=== PATIENT | female | born 1940 | race Caucasian/White ===

== ENCOUNTER → 2016-03-08 | Outpatient (CLI) | payer OTHER, MEDICARE ==
[~2016-03-08] VITALS: Ht 154.9 cm; Wt 64.0 kg
[~2016-03-08] MED LIST: HYZAAR 100-251 EACH PO; METHADONE HCL 110 M1 PO; ORTHO-TABS1 EACH PO; PROLIA60 MG/1 ML SQ; [UNRECOGNIZED DRUG - OTHER] PO
--- NOTE | ~2016-03-08 | HPC ---
[facility] [place] [address] PAIN MANAGEMENT CONSULTATION Name: AUDIE DE LA TORRE Room #: REG CLChildren[facility] Of San DiegoYanet.#: [id number] Admission: 03/08/16 Attend Phys: Alessandro De La Torre DO Discharge: Date of : 41 Report #: [id number] THIS REPORT FOR: //name// CC: Alessandro FLORESAPORN TREEMANEEKAM DATE OF SERVICE: 03/08/2016 REFERRING PHYSICIAN: Alexandru Wheeler MD. CHIEF COMPLAINT: Chronic abdominal pain. HISTORY OF PRESENT ILLNESS: As you know, the patient is a 75-year-old female referred to our service for medication management. Apparently, the patient was started on high dose methadone therapy. This was continued for years due to changes in the patient's medical treatments through physician changes. She was subsequently referred to our clinic. We have kept the patient on the methadone 10 mg dose, but have advised the patient that CDC regulations indicate that no further escalation of medication other than t.i.d. dosing of methadone can be provided, and there is a strong possibility that we may need to reduce this further based on new CDC guidelines. The patient returns today requesting refill on the medication which is at the top dose of the CDC guidelines at 90 morphine equivalents a day. She is denying side effects of medication and wishes to continue the therapy. ALLERGIES: PENICILLIN and AMLODIPINE. CURRENT MEDICATIONS: Methadone 10 mg t.i.d., ProEPA 4 tabs once a day, calcium carbonate 1 tab per day, losartan/hydrochlorothiazide 100/25 once a day. SOCIAL HISTORY: The patient denies tobacco, alcohol, IV or illicit drug use. She is on disability, has been so since the early 90s, accompanied by her today. PHYSICAL EXAMINATION: VITAL SIGNS: Blood pressure 146/85, pulse is 114, respiratory rate 20 and unlabored. The patient is 95% on room air. Height 5 feet 1 inch tall, weight 141.0 pounds, BMI calculated at 26.7. GENERAL: Well-developed, well-nourished, and well-hydrated, exogenously obese 75-year-old female, appearing his stated age, placing current pain score at 7/10. HEENT: Normocephalic and atraumatic. Pupils are equal, round, and reactive to light. Extraocular muscles are intact. EXTREMITIES: Show no clubbing, no cyanosis, no edema. ABDOMEN: Nontender and nondistended. Bowel sounds are present. [facility] [address] [place] [address] PAIN MANAGEMENT CONSULTATION Name: AUDIE DE LA TORRE Room #: REG CL Vishal#: [id number] Admission: 03/08/16 Attend Phys: Alessandro De La Torre DO Discharge: Date of : 41 Report #: [id number] ASSESSMENT: 1. Chronic abdominal pain. 2. Malabsorption syndrome. 3. Dumping syndrome. 4. Osteoporosis. 5. Chronic pancreatitis. PLAN: 1. The patient has returned today in followup visit, where we have had a very long discussion about CDC regulations and guidelines. The patient was receiving her medications through [employer], [employer] for her medications. I advised the patient at this time that she is now going to be restricted to no more than 90 morphine equivalents in a given day. There is a possibility that this will be reduced even further per the CDC guidelines. [employer] has put out information to not only us, but the patient in regards to use of opioids. I agree, typically opioid use is excessive in this patient's case. She appears to be doing fairly well at this time. Obviously, we will remain within the guidelines of the CDC, but I do not feel the changes are necessary at this time, in this patient's prescriptions. We will continue the patient on her prescriptions, as she does find benefit with their use. She is denying any side effects. She has been appropriate with her medication. 2. The patient was provided a prescription of methadone 10 mg dose 1 tab p.o. 3 times a day, #90 releases of today, 4 weeks from today, and 8 weeks from today. 3. The patient is advised that she has been suffering from osteoporosis. She did bring a DEXA scan with her, which does show severe osteoporosis. We would recommend light weightbearing exercises to increase bone density. We will send the patient for physical therapy twice a week for 4 weeks to address these symptoms. She will begin this light exercise program in hopes of improving bone density through weightbearing. 4. We will see the patient back in followup visit in 3 months. At that time, we will adjust to whatever recent CDC guidelines may be present. There is possibility that we may be able to continue her methadone at 10 mg 3 times a day. There is also possibility, that we may need to reduce further, and if this is the case, we will then discuss it at that visit. <ELECTRONICALLY SIGNED> By: Alessandro De La Torre DO 03/13/16 0702 [id number] Alessandro De La Torre DO /nt
[2016-03-08 10:41] VITALS: BP 146/85
== END | disposition home or self-care (01) ==
LOC: PAIN 07:19
DX: K90.9 Intestinal malabsorption, unspecified (principal); K91.1 Postgastric surgery syndromes; M81.0 Age-related osteoporosis without current pathological fracture; K86.1 Other chronic pancreatitis; G89.29 Other chronic pain; K86.81 Exocrine pancreatic insufficiency

== ENCOUNTER → 2016-06-06 | Outpatient (CLI) | payer OTHER, MEDICARE ==
[~2016-06-06] VITALS: Ht 154.9 cm; Wt 58.6 kg
[2016-06-06 10:52] VITALS: BP 148/88
== END ==
LOC: PAIN 07:01
DX: G89.29 Other chronic pain (principal); K90.9 Intestinal malabsorption, unspecified; K91.1 Postgastric surgery syndromes; I10 Essential (primary) hypertension

== ENCOUNTER → 2016-09-06 | Outpatient (CLI) | payer OTHER, MEDICARE ==
[~2016-09-06] VITALS: Ht 157.5 cm; Wt 58.1 kg
[~2016-09-06] MED LIST changes: +LOSARTAN-HCTZ1 EAC1 PO; +VITAMIN D 5050000 I1 PO; +vitamin B-12
[2016-09-06 10:29] VITALS: BP 153/89
== END ==
LOC: PAIN 07:07
DX: R10.9 Unspecified abdominal pain (principal); K90.9 Intestinal malabsorption, unspecified; K91.1 Postgastric surgery syndromes; M81.8 Other osteoporosis without current pathological fracture; G89.29 Other chronic pain; Z79.899 Other long term (current) drug therapy

== ENCOUNTER → 2016-12-05 | Outpatient (CLI) | payer OTHER, MEDICARE ==
[~2016-12-05] VITALS: Ht 157.5 cm; Wt 59.4 kg
--- NOTE | ~2016-12-05 | HPC ---
[facility] [place] [address] PAIN MANAGEMENT CONSULTATION Name: AUDIE DE LA TORRE Room #: REG CL Kimberli.#: [id number] Admission: 12/05/16 Attend Phys: Alessandro De La Torre DO Discharge: Date of : 41 Report #: [id number] THIS REPORT FOR: //name// CC: Alessandro CHEEMAKAM Gabriela Tapia DATE OF SERVICE: 12/05/2016 DATE OF SERVICE: 12/05/2016 CHIEF COMPLAINT: Chronic abdominal pain. HISTORY OF PRESENT ILLNESS: As you know, the patient is a 76-year-old female referred to our service by Dr. Alexandru Wheeelr for assistance in maintaining medication management for methadone therapy. The patient is taking 10 mg 3 times a day methadone, which we reduced when we initially met the patient as she was on excessively high doses and did not need that level of medication. We have subsequently continued the weaning process as much as we possibly can at this time, we have stabilized at the dose of 10 mg 3 times a day with plans to move to 7.5 mg in the very near future. She returns today stating that 10 mg dose is working well at this time, but does understand that the CDC guidelines are going to be changing and opioid therapies will be reducing and we will be adjusting her therapy lower likely at next visit. She returns today for 3 months' worth of medication at current dosing. ALLERGIES: PENICILLIN, AMLODIPINE. CURRENT MEDICATIONS: Methadone 10 mg 3 times a day, Prolia 60 mg subq as directed, ____ 4 times a day, calcium carbonate 1 tab per day, losartan/hydrochlorothiazide 100/25 once a day. SOCIAL HISTORY: The patient denies tobacco, alcohol, IV or illicit drug use. She is on disability. She is present with her . IMAGING: No new imaging available. PHYSICAL EXAMINATION: VITAL SIGNS: Blood pressure 151/90, pulse is 109, respiratory rate 14, unlabored. The patient is 98% on room air, height 5 feet 2 inches tall, weight 131 pounds, BMI calculated 24. GENERAL: Well developed, well nourished, well hydrated, thin, 76-year-old female appearing her stated age, placing current pain score 6/10. HEENT: Normocephalic, atraumatic. Pupils equal, round, reactive to light. Speech is fluent. [facility] [address] [place] [address] PAIN MANAGEMENT CONSULTATION Name: AUDIE DE LA TORRE Room #: REG CLMonse Rodgers#: [id number] Admission: 12/05/16 Attend Phys: Alessandro De La Torre DO Discharge: Date of : 41 Report #: [id number] ABDOMEN: Nontender, nondistended. Bowel sounds present. No guarding, no rebound tenderness. EXTREMITIES: Show no clubbing, no cyanosis, no edema. ASSESSMENT: 1. Chronic abdominal pain. 2. Malabsorption syndrome. 3. Dumping syndrome. 4. Progressively worsening osteoporosis. 5. Chronic intractable pain. PLAN: 1. The patient returns today in followup visit indicating no side effects with the current opioid therapy. She and I discussed the recent CDC changes and the fact that we will ultimately have to be reducing her opioids further. At this time, she is at the top dose possible from CDC standpoint at 90 morphine equivalents a day, approximately at 10 mg 3 times a day dose of methadone. I have discussed with the patient that the recent literature would indicate we will be dropping her dose by 50% within the next couple of months given the recent CDC literature indicating a desire to drop to 50 morphine equivalents per day. We will need to make this adjustment if the CDC does recommend this. At this point, we do not have a specific etiology for the patient's symptoms and I believe that keeping her at the lowest opioid dose is the most appropriate option. 2. The patient was provided a prescription of methadone 10 mg dose 1 tab 3 times a day. She was given #90 tablets, releases of today, 4 weeks from today, 8 weeks from today, 3 months' worth of medication. I did advise the patient that these medications will likely have to be reduced at our next visit. We will discuss this at followup. 3. We will see the patient back in followup visit in 3 months. At that time, discuss new CDC guidelines if these are available and adjust accordingly. <ELECTRONICALLY SIGNED> By: Alessandro De La Torre DO 12/13/1606 9 Alessandro De La Torre DO /nt
[2016-12-05 11:02] VITALS: BP 151/90
== END | disposition home or self-care (01) ==
LOC: PAIN 07:14
DX: Z76.0 Encounter for issue of repeat prescription (principal); R10.9 Unspecified abdominal pain; G89.29 Other chronic pain; K90.9 Intestinal malabsorption, unspecified; K91.1 Postgastric surgery syndromes; M81.0 Age-related osteoporosis without current pathological fracture; Z88.0 Allergy status to penicillin; Z88.8 Allergy status to other drugs, medicaments and biological substances; Z79.899 Other long term (current) drug therapy; Z79.891 Long term (current) use of opiate analgesic

== ENCOUNTER → 2017-03-06 | Outpatient (CLI) | payer OTHER, MEDICARE ==
[~2017-03-06] VITALS: Ht 157.5 cm; Wt 60.9 kg
[~2017-03-06] MED LIST changes: +COLESTIPOL HCL1 G1 PO; +LIDOCAINE1 EACH TOP
--- NOTE | ~2017-03-06 | HPC ---
[facility] [place] [address] PAIN MANAGEMENT CONSULTATION Name: AUDIE DE LA TORRE Room #: [facility] CLKess[facility] For Rehabilitation.#: [id number] Admission: 03/06/17 Attend Phys: Alessandro De La Torre DO Discharge: Date of : 41 Report #: [id number] THIS REPORT FOR: //name// CC: Alessandro FLORESAPORN TREEMANEEKAM DATE OF SERVICE: 03/06/2017 REFERRING PHYSICIAN: Alexandru Wheeler MD CHIEF COMPLAINT: Chronic abdominal pain. HISTORY OF PRESENT ILLNESS: As you know, the patient is a 76-year-old female, referred to our service by Dr. Alexandru Wheeler for assistance with maintaining methadone therapy. The patient is currently taking 10 mg of methadone 3 times a day for which she describes the pain is well controlled. Despite the fact that the patient reports well controlled pain, she indicates pain level today of 7/10, states pain is aching and cramping in sensation, exacerbated with drinking something cold and eating something spicy, improves with medications and heat compresses. She returns today in followup visit stating she has been doing very well, requesting refill on medications at this juncture. ALLERGIES: PENICILLIN and AMLODIPINE. CURRENT MEDICATIONS: Methadone 10 mg 3 times a day, vitamin B12 injections once a month, vitamin D 50,000 units per week, Prolia 60 mg subq, calcium carbonate 1 tab per day, and losartan/hydrochlorothiazide 100/25 once a day. SOCIAL HISTORY: The patient denies tobacco, alcohol, IV or illicit drug use. She is on disability. She is present with her who is in the room today. IMAGING: No new imaging available. PHYSICAL EXAMINATION: VITAL SIGNS: Blood pressure 123/67, pulse 95, respiratory rate 14 and unlabored, the patient is 100% on room air, height 5 feet 2 inches tall, weight 134.2 pounds, and BMI calculated 24.5. GENERAL: Well-developed, well-nourished, well-hydrated 76-year-old female, appears her stated age, she is placing current pain score at 7/10. HEENT: Normocephalic, atraumatic. Pupils are equal, round, and reactive to light. Extraocular muscles are intact. NEUROLOGIC: Speech fluent. The patient deemed a good historian. LUNGS: Clear. No wheezing, rhonchi, or rales. CARDIOVASCULAR: Regular. No appreciable gallop or rub. ABDOMEN: Soft, nontender, bowel sounds are present. No guarding, no rebound. [address] [address] PAIN MANAGEMENT CONSULTATION Name: AUDIE DE LA TORRE Room #: [facility].#: [id number] Admission: 03/06/17 Attend Phys: Alessandro De La Torre DO Discharge: Date of : 41 Report #: [id number] EXTREMITIES: Show no clubbing, no cyanosis, and no edema. ASSESSMENT: 1. Chronic abdominal pain. 2. Malabsorption syndrome. 3. Dumping syndrome. 4. Osteoporosis. 5. Chronic intractable pain. PLAN: 1. The patient has returned today in followup visit for medication management. The patient and I discussed the efficacy of the medication. Indicates medications are working well despite the elevated pain level of 7/10 today. We have discussed with the patient our concern about this elevated pain level and the fact that she reports this with pain improvement. This does not tend to equate as the patient states good pain control with medication, but then provides a pain score of 7/10. The patient states that she has been out of her medication over the past 2 days and thus her pain has intensified. Typically, her pain is around a level of 2-3/10. She has requested refill on medication at this time. 2. We have provided the patient with methadone 10 mg dose 1 tab p.o. t.i.d., #90, release dates of today, 4 weeks from today, 8 weeks from today, 3 months' worth of medication. 3. The patient was submitted to a buccal drug screen today, we will have the patient undergo the procedure today and review the results in approximately a week and week and half. We provide these randomized drug evaluation to determine the appropriate use of medications, this is part of our drug monitoring system. If no aberrancy is noted, we will see the patient back in followup visit in 3 months; if any concerning entries are within the drug screen, we will contact the patient. <ELECTRONICALLY SIGNED> By: Alessandro De La Torre DO 03/07/17 0739 1221 1244 Alessandro De La Torre DO /nt
[2017-03-06 10:22] VITALS: BP 123/67
== END ==
LOC: PAIN 07:04
DX: K90.9 Intestinal malabsorption, unspecified (principal); K91.1 Postgastric surgery syndromes; M81.0 Age-related osteoporosis without current pathological fracture

== ENCOUNTER → 2017-06-06 | Outpatient (CLI) | payer OTHER, MEDICARE ==
[~2017-06-06] VITALS: Ht 157.5 cm; Wt 59.2 kg
[~2017-06-06] MED LIST changes: -COLESTIPOL HCL1 G1 PO; -LIDOCAINE1 EACH TOP
--- NOTE | ~2017-06-06 | HPC ---
[facility] [address] [address] [address] PAIN MANAGEMENT CONSULTATION Name: AUDIE DE LA TORRE Room #: REG CLParnassus CampusYanet.#: [id number] Admission: 06/06/17 Attend Phys: Alessandro De La Torre DO Discharge: Date of : 41 Report #: [id number] THIS REPORT FOR: //name// CC: Alessandro BEMANEEKAM Gabriela Herronkarn DATE OF SERVICE: 06/06/2017 REFERRING PHYSICIAN: Alexandru Wheeler MD CHIEF COMPLAINT: Chronic abdominal pain. HISTORY OF PRESENT ILLNESS: As you know, the patient is a 77-year-old female who returns today in followup visit for continuation of methadone therapy. She is taking 10 mg 3 times a day for chronic abdominal pain secondary to issues of malabsorption and dumping syndrome. The patient was referred to our clinic by her primary care physician, Dr. Alexandru Wheeler for the continuation of this therapy. She has been doing well with medication, she is denying any side effects. Recent urine drug screen shows positive for methadone and no other illicit substances. She has been appropriate with her medication. She returns for refills for the next 3 months. She is denying any side effects and feels medications are working beneficially up to 70% improvement. ALLERGIES: PENICILLIN and AMLODIPINE. CURRENT MEDICATIONS: Methadone 10 mg 3 times a day, Prolia 60 mg subq as directed, vitamin B12 monthly, vitamin D 50,000 units once a week, calcium carbonate 1 tab per day, and losartan/hydrochlorothiazide 100/25 once a day. SOCIAL HISTORY: The patient denies tobacco, alcohol, IV or illicit drug use. She is retired. She is accompanied by her present in room today. IMAGING: No new imaging available. PQRS: The patient has known osteoarthritis and osteoporosis. No rheumatoid arthritis. Her pain intensity today is level of 6-7/10. She is a fall risk, but has not had a fall in the last 3 months. She does use a roller walker for ambulation. She is not on blood thinner. She is treated for hypertension. She has been on opioids greater than 6 weeks and is under contract with [facility] for these medications. She has a low risk of opioid abuse. Her pain impact score functional assessment tool 35/70 indicating moderate interference. PHYSICAL EXAMINATION: VITAL SIGNS: Blood pressure 137/72, pulse 103, respiratory rate 14 and [facility] [address] [place] [address] PAIN MANAGEMENT CONSULTATION Name: BRITTAUDIE Room #: REG CL M.R.#: [id number] Admission: 06/06/17 Attend Phys: Alessandro De La Torre DO Discharge: Date of : 41 Report #: [id number] unlabored, the patient is 97% on room air, height 5 feet 2 inches tall, weight 130.6 pounds, and BMI calculated 23.9. GENERAL: Well-developed, well-nourished, well-hydrated 77-year-old female, appearing her stated age, placing current pain score around 6-7/10. HEENT: Normocephalic, atraumatic. Pupils are equal, round, and reactive to light. NEUROLOGIC: Speech is fluent. The patient deemed a good historian. LUNGS: Clear, no wheeze, rhonchi, or rales. CARDIOVASCULAR: Regular. No appreciable gallop or rub. ABDOMEN: Soft, nontender, nondistended, no guarding, no rebound tenderness. EXTREMITIES: Show no clubbing, no cyanosis. ASSESSMENT: 1. Chronic abdominal pain. 2. Malabsorption syndrome. 3. Dumping syndrome. 4. Osteoporosis. 5. Chronic intractable pain. PLAN: 1. The patient returns today in followup visit for medication management. She feels the methadone at 10 mg 3 times a day is working beneficially for pain control, in fact gives us a 70% improvement in overall symptoms. Interestingly, the patient is providing a pain score today 6-7/10, which does not correlate with a 70% improvement. I have questioned the patient about this today, she indicates that her pain may be less, but today is more intense. She has requested refill on medication, denying side effects of somnolence, decreased mental acuity, disorientation, confusion and mental slowing. She has requested refills for the next 3 months. 2. The patient was provided a prescription of methadone 10 mg dose 1 tab p.o. t.i.d., I have given the patient #90 tablets, release dates of today, 4 weeks from today, 8 weeks from today. The patient was advised to take the medication as directed, not to take the medication prophylactically. 3. We will see the patient back in followup visit in 3 months for medication management. <ELECTRONICALLY SIGNED> By: Alessandro De La Torre DO 06/20/17 1207 [id number] 1049 Alessandro De La Torre DO /nt
[2017-06-06 10:55] VITALS: BP 137/72
== END ==
LOC: PAIN 06:58
DX: G89.4 Chronic pain syndrome (principal); R10.9 Unspecified abdominal pain; M19.90 Unspecified osteoarthritis, unspecified site; K91.1 Postgastric surgery syndromes; K90.9 Intestinal malabsorption, unspecified

== ENCOUNTER → 2017-09-04 | Outpatient (CLI) | payer OTHER, MEDICARE ==
[~2017-09-04] VITALS: Ht 157.5 cm; Wt 59.8 kg
[~2017-09-04] MED LIST changes: +COLESTIPOL HCL1 G1 PO; +LIDOCAINE1 EACH TOP
--- NOTE | ~2017-09-04 | HPC ---
[facility] [address] [place] [address] PAIN MANAGEMENT CONSULTATION Name: AUDIE DE LA TORRE Room #: REG CL M.R.#: [id number] Admission: 09/04/17 Attend Phys: Alessandro De La Torre DO Discharge: Date of : 41 Report #: [id number] THIS REPORT FOR: //name// CC: Alessandro Wheeler MD Physician staff [facility] DATE OF SERVICE: 09/04/2017 REFERRING PHYSICIAN: Alexandru Wheeler MD. CHIEF COMPLAINT: Chronic abdominal pain. HISTORY OF PRESENT ILLNESS: As you know, the patient is a 77-year-old female who returns today in followup visit for continuation of methadone therapy. She is taking 10 mg 3 times a day for chronic abdominal pain secondary to issues of malabsorption and dumping syndrome. The patient was referred to our clinic by her primary care physician, Dr. Alexandru Wheeler, for continuation of this therapy. She returns today in followup visit where we have to discuss ongoing medication therapy. She is at an excessively high dose of opioids given the conversion factor provided by the [facility] of 1 mg methadone equalling 4 mg morphine equivalents, total of morphine minimum is 120. If utilizing the higher dosing equivalency of 8:1, the patient is then at 240 morphine equivalents a day. She returns for medication management, stating 70% improvement in overall pain. ALLERGIES: PENICILLIN, AMLODIPINE. CURRENT MEDICATIONS: Methadone 10 mg 3 times a day, Prolia 60 mg subQ as directed, vitamin B12 once a month injection, vitamin D 50,000 units once a week, calcium carbonate 1 tab per day, losartan/hydrochlorothiazide 100/25 once a day. SOCIAL HISTORY: The patient denies tobacco, alcohol, IV or illicit drug use. She is retired, retired years ago. She is accompanied by her , present in room today. IMAGING: No new imaging available. PQRS: The patient has osteoarthritis of the low back, bilateral knees and hips, also suffers from osteoporosis. No rheumatoid arthritis. She indicates pain intensity is 7/10. She is a fall risk, but has not had a fall in last 3 months. She is on a blood thinner. She is treated for hypertension. She has been on chronic opioids for about 30 years. She is at a higher level of risk assessment for opioid abuse. Functional assessment indicates the pain impact score of 38/70, moderate interference. [address] [address] PAIN MANAGEMENT CONSULTATION Name: AUDIE DE LA TORRE Room #: REG OLGA Rodgers#: [id number] Admission: 09/04/17 Attend Phys: Alessandro De La Torre DO Discharge: Date of : 41 Report #: [id number] PHYSICAL EXAMINATION: VITAL SIGNS: Blood pressure 124/75, pulse 93, respiratory rate 16, unlabored. The patient is 100% on room air. Height 5 feet 2 inches tall, weight 131.8 pounds, BMI calculated 24.1. GENERAL: Well-developed, well-nourished, well-hydrated 77-year-old female, appearing her stated age. She is placing current pain score 7/10. HEENT: Normocephalic, atraumatic. Pupils are equal, round, reactive to light. EXTREMITIES: Show no clubbing, no cyanosis, no edema. MUSCULOSKELETAL: Lower extremity strength is symmetrical 5/5, intact to light touch from L1 through S2 dermatomes. ASSESSMENT: 1. Chronic abdominal pain. 2. Malabsorption syndrome. 3. Dumping syndrome. 4. Osteoporosis. 5. Chronic intractable pain. PLAN: 1. The patient has returned today in followup visit where we have discussed at length the methadone therapy. If utilizing the lower calculation of the CDC, the patient is 120 morphine equivalents a day. After utilizing the higher calculation, then the patient is 240 morphine equivalents a day, well over the CDC recommended guidelines of 90 morphine equivalents total. We have discussed with the patient that the patient's over 90 morphine equivalents a day will need to be seen on a monthly basis due to the high level of opioids and the risk involved with those high level of opioids in older individuals. If the patient is willing to reduce her medication to a lower dose, there is a possibility that we can see the patient more infrequently. If she is able to reduce her dose to 7.5 mg 3 times a day, this will allow the patient to be seen on an every other month basis. If she drops the medication further, she will be seen on an every 3-month basis. These adjustments have been made to address the ongoing opioid issue, but also to have better and tighter control on individuals who are on more dangerous dosing. The patient has chosen to continue with the 10 mg t.i.d. dosing at this time and consider options before she makes this adjustment. 2. The patient was provided prescription of methadone 10 mg dose 1 tab p.o. t.i.d. I have given the patient #90 tablets, with release of today and 4 weeks from today, 2 months' worth of medication. We have given the patient 2 months' worth of treatment to be able to determine if they wish to reduce her dose or if they wish to continue the 10 mg dosing regimen. If she chooses the 10 mg dosing regimen once a month, will be necessary for medication management. If she reduces her dose to 7.5 mg 3 times a day, will be able to adjust her medications every other month. Prescriptions were provided to the patient today. [facility] [address] [place] [address] PAIN MANAGEMENT CONSULTATION Name: AUDIE DE LA TORRE Room #: REG OLGA Rodgers#: [id number] Admission: 09/04/17 Attend Phys: Alessandro De La Torre DO Discharge: Date of : 41 Report #: [id number] 3. We will see the patient back in followup visit 2 months from today. We will make adjustments in medications based on above. By: [id number] Alessandro De La Torre DO /nt
[2017-09-04 10:04] VITALS: BP 124/75
== END ==
LOC: PAIN 06:38
DX: M85.80 Other specified disorders of bone density and structure, unspecified site (principal); G89.4 Chronic pain syndrome; R10.9 Unspecified abdominal pain; K90.9 Intestinal malabsorption, unspecified; K91.1 Postgastric surgery syndromes; Z79.899 Other long term (current) drug therapy

== ENCOUNTER → 2017-12-25 | Outpatient (CLI) | payer OTHER, MEDICARE ==
[~2017-12-25] VITALS: Ht 157.5 cm; Wt 58.8 kg
--- NOTE | ~2017-12-25 | HPC ---
[facility] [address] [place] [address] PAIN MANAGEMENT CONSULTATION Name: AUDIE DE LA TORRE Room #: REG CL Vishal#: [id number] Admission: 12/25/17 Attend Phys: Coco Potts Discharge: Date of : 42 Report #: [id number] THIS REPORT FOR: //name// CC: Coco JONES MD DATE OF SERVICE: 12/25/2017 CHIEF COMPLAINT: Chronic abdominal pain, here for medication management. HISTORY OF PRESENT ILLNESS: As you know, this is a very pleasant 77-year-old female, who returns today for a followup visit for her continuation of methadone therapy. She takes 10 mg 3 times a day for her chronic abdominal pain secondary to issues with malabsorption and dumping syndrome. This patient is usually seen by Dr. Alessandro De La Torre, this is her first visit with me today. She returns for her followup where we are discussing her medication therapy. She is on high dose opioids given the conversion factor for the methadone. Therefore, she is seeing us every 2 months for her medication, but she states that her pain score is an average of 5/10, so the methadone significantly helps her pain. She states though today she is having not a good day and rating it at 7. She complains of cramping and aching, but states that the heat and medication help her pain. ALLERGIES: PENICILLIN AND AMLODIPINE. MEDICATIONS: Methadone 10 mg 3 times a day, lidocaine patch, colestipol, vitamin B12, vitamin D, Prolia, calcium and Hyzaar 100/25. PQRS: 1. History of osteoarthritis in her knees and her hands and back. Denies history of rheumatoid arthritis. 2. Height 5 feet 2 inches, weight 129, BMI is 23.7. 3. Vital signs: Blood pressure 139/73, pulse is 86, respirations 16, oxygen sat is 96. 4. 5-7/10 is the pain score. 5. Fall risk: Denies dizziness. Denies needing help walking or standing and has not fallen in the last 3 months. 6. No blood thinners. 7. Does have a history of hypertension. 8. Opioid therapy is greater than 6 weeks, therefore, opioid signed contract is on the chart. 9. Her risk assessment tool is low. 10. Her functional assessment is 38/70. 11. No recreational drug use. The patient has never smoked and does not use [facility] [address] [place] [address] PAIN MANAGEMENT CONSULTATION Name: BRITTAUDIE CHUY Room #: REG OLGA Rodgers#: [id number] Admission: 12/25/17 Attend Phys: Coco Potts Discharge: Date of : 41 Report #: [id number] alcohol. [facility] PDMP has been checked and no aberrant behavior noted by this patient for her opioid use. PHYSICAL EXAMINATION: VITAL SIGNS: Blood pressure is 139/73, pulse 86, respirations 16, oxygen level is 96. GENERAL: Well-developed, well-nourished, well-hydrated, 77-year-old, appears her stated age, placing her current pain score from 5-7/10. HEENT: Normocephalic, atraumatic. Pupils are equal, round and reactive to light. EXTREMITIES: No clubbing, no cyanosis, no edema. MUSCULOSKELETAL: Lower extremity strength is 4/5, intact to light touch L1 through S2 dermatomes. Using a walker today. Does have tenderness over her right hip area. ASSESSMENT: 1. Chronic abdominal pain. 2. Malabsorption syndrome. 3. Dumping syndrome. 4. Osteoporosis. 5. Chronic intractable pain. We reviewed the fact that opiate medications are being used to provide analgesia adequate to support activities of daily living, not attempting to achieve a specific pain score on the 0-10 Visual Analog Scale. The current opiate medications are providing sufficient analgesia to allow the patient to participate in activities of daily living. The patient is not exhibiting any aberrant behavior suggestive of drug diversion. The patient is not having any adverse reactions to medications. The patient is not suffering from daytime somnolence or mental acuity changes. The patient is managing opiate-induced constipation with appropriate wsvo-hhi-ozyikpm agents and dietary considerations. The patient was counseled on concern for caution with operating a motor vehicle while using opiate medications. A physical exam was performed and the patient's functional status was evaluated. All patients with back pain were advised against the bed rest greater than 4 days and were advised to return to normal activities. Pain score assessment was noted and the treatment plan was reviewed with the patient. All current medications, both prescribed and OTC were reviewed and reconciled on the electronic medical record. Tobacco screening was accomplished and smoking cessation was advised when indicated. BMI was noted and diet/exercise modification was recommended for all patients following outside normal parameters. [address] [address] PAIN MANAGEMENT CONSULTATION Name: AUDIE DE LA TORRE Room #: REG OLGA Rodgers#: [id number] Admission: 12/25/17 Attend Phys: Coco PATSY Potts Discharge: Date of : 41 Report #: [id number] I reviewed with the patient today their responsibilities to safeguard prescription medications, reviewed their responsibility to utilize medications only as prescribed by the physician. They are to seek and receive pain medications only from 1 physician group ( [facility]). They are to use 1 pharmacy and keep the clinic informed if they change pharmacies. Their responsibilities include making followup visits in a timely fashion and to avoid abrupt discontinuation of medication usage. Their responsibilities further include bringing their medications (bottles from the pharmacy with residual pills) to the visit for possible confirmation of pill counts and the patient understands it is their responsibility to submit to random drug screens to ensure both that the medications prescribed are present, and that no other controlled substances are present. All prescriptions provided today were generated electronically. PLAN: 1. The patient has returned today for followup of her medication management of methadone. According to the CDC guidelines, the patient is on a high level of MME, the patient is at 240 MME today, well over the standard of 90 MME. The patient has been seen on a monthly or every 2-month basis due to this high level risk the patient is tolerating and doing well and functioning on this medication with no aberrant abuse from it or no daytime somnolence and denies constipation. 2. The patient was given methadone 10 mg 1 tablet 3 times a day, script for 90 to be released today and again in 4 weeks, this is 2 months' worth of medicine. At that time, she will make appointment either with Dr. Alessandro De La Torre or myself. We may at that time discuss reducing her medicine if we are able. The patient was seen in collaboration with Dr. Alessandro De La Torre. <ELECTRONICALLY SIGNED> By: Coco Potts 12/26/17 0712 [id number] Coco Potts /eduardo
[2017-12-25 14:07] VITALS: BP 139/73
== END ==
LOC: PAIN 06:19
DX: R10.9 Unspecified abdominal pain (principal); G89.4 Chronic pain syndrome; M81.0 Age-related osteoporosis without current pathological fracture; K90.9 Intestinal malabsorption, unspecified; K91.1 Postgastric surgery syndromes; Z79.899 Other long term (current) drug therapy

== ENCOUNTER → 2018-02-27 | Outpatient (CLI) | payer OTHER, MEDICARE ==
[~2018-02-27] VITALS: Ht 157.5 cm; Wt 58.5 kg
--- NOTE | ~2018-02-27 | HPC ---
[facility] [address] [place] [address] PAIN MANAGEMENT CONSULTATION Name: AUDIE DE LA TORRE Room #: REG CL MDavis.#: [id number] Admission: 02/27/18 Attend Phys: Coco Potts Discharge: Date of : 41 Report #: [id number] THIS REPORT FOR: //name// CC: Coco Potts Physician staff JESICA VILLATORO DATE OF SERVICE: 02/27/2018 CHIEF COMPLAINT: Chronic abdominal pain. HISTORY OF PRESENT ILLNESS: This is a very pleasant 77-year-old female, who returns to the pain clinic today for a refill of her methadone. The patient takes 10 mg tablets 3 times a day for her chronic abdominal pain secondary to malabsorption and dumping syndrome. She tells me that her pain score is a 7 today, which is her normal pain score. She tells me that it is worse with eating, drinking cold items and the weather. The medication does help it or heating pad or distraction. She denies any constipation or daytime sleepiness. She tells me that she does safeguard her medications and just would like a refill of her current methadone today. ALLERGIES: PENICILLIN AND AMLODIPINE. CURRENT LIST OF MEDICATIONS: Methadone 10 mg 3 times a day, lidocaine patch as needed, colestipol tablets 3 times a day, vitamin B12 monthly injections, vitamin D 5000 units every week, Prolia 60 mg subcutaneous, daily, calcium tablets daily, losartan/hydrochlorothiazide 100/25 daily. PQRS: She has osteoporosis and is treated for that. History of osteoarthritis in her hands and knees. She denies rheumatoid arthritis. Height is 5 feet 2 inches, weight is 129, BMI is 23. Vital signs: Blood pressure 122/67, pulse is 81, respirations 18, oxygen sat is 94. Pain score is 7/10. Fall risk, she denies dizziness. Does not need help walking or standing, has not fallen in the last 3 months. Does use a walker. The patient is not on any blood thinners, does take hypertension medications. Opioid therapy is greater than 6 weeks, therefore, an opioid signed contract is on the chart. Her opioid risk assessment is low and her functional assessment is 38/70. The patient does not use recreational drug use. She does not smoke and does not drink alcohol. Prescription monitoring system, we checked, she is filling appropriately her medications from Dr. Alessandro De La Torre. There is a recent drug screen on the chart that is appropriate. PHYSICAL EXAMINATION: GENERAL: This is a well-developed, well-nourished, well-hydrated 77-year-old who appears her stated age, placing her current pain score at 7/10. HEENT: Normocephalic, atraumatic. Pupils are equal, [place] [address] PAIN MANAGEMENT CONSULTATION Name: BRITTAUDIE CHUY Room #: REG CLI Vishal#: [id number] Admission: 02/27/18 Attend Phys: Coco Potts Discharge: Date of : 41 Report #: [id number] light. EXTREMITIES: No clubbing, no cyanosis, no edema present. MUSCULOSKELETAL: Lower extremity strength judged to be 4/5. Using a walker today. Does have tenderness over her right hip area. Gait is mildly antalgic. ASSESSMENT: 1. Chronic abdominal pain. 2. Malabsorption syndrome. 3. Dumping syndrome. 4. Osteoporosis. 5. Chronic intractable pain. We reviewed the fact that opiate medications are being used to provide analgesia adequate to support activities of daily living, not attempting to achieve a specific pain score on the 0-10 Visual Analog Scale. The current opiate medications are providing sufficient analgesia to allow the patient to participate in activities of daily living. The patient is not exhibiting any aberrant behavior suggestive of drug diversion. The patient is not having any adverse reactions to medications. The patient is not suffering from daytime somnolence or mental acuity changes. The patient is managing opiate-induced constipation with appropriate nwjd-eos-vjptcbc agents and dietary considerations. The patient was counseled on concern for caution with operating a motor vehicle while using opiate medications. A physical exam was performed and the patient's functional status was evaluated. All patients with back pain were advised against the bed rest greater than 4 days and were advised to return to normal activities. Pain score assessment was noted and the treatment plan was reviewed with the patient. All current medications, both prescribed and OTC were reviewed and reconciled on the electronic medical record. Tobacco screening was accomplished and smoking cessation was advised when indicated. BMI was noted and diet/exercise modification was recommended for all patients following outside normal parameters. I reviewed with the patient today their responsibilities to safeguard prescription medications, reviewed their responsibility to utilize medications only as prescribed by the physician. They are to seek and receive pain medications only from 1 physician group ( [facility]). They are to use 1 pharmacy and keep the clinic informed if they change pharmacies. Their responsibilities include making followup visits in a timely fashion and to avoid abrupt discontinuation of medication usage. Their responsibilities further include bringing their medications (bottles from the pharmacy with residual pills) to the visit for possible confirmation of pill counts and the patient understands it is their responsibility to submit to random drug screens to ensure both that the medications prescribed are present, and that no other controlled substances are present. All prescriptions provided today were [address] [address] PAIN MANAGEMENT CONSULTATION Name: AUDIE DE LA TORRE Room #: REG CLI [facility].#: [id number] Admission: 02/27/18 Attend Phys: Coco Potts Discharge: Date of : 41 Report #: [id number] generated electronically. PLAN: 1. The patient returns to the pain clinic today for followup for her medication management of methadone. The patient is seen every 2 months due to her high level of opioid placement on the CDC guidelines. The patient understands this. She is tolerating her medicines and being able to function well with this medication. 2. Script given for methadone 10 mg 1 tablet 3 times a day, #90 to be released today and 4-week time. 3. The patient will follow up in [address] Alessandro De La Torre at that appointment. Care given today in collaboration under Dr. Alessandro De La Torre. <ELECTRONICALLY SIGNED> By: Coco Potts 02/28/18 0839 [id number] Coco Potts /eduardo
[2018-02-27 10:36] VITALS: BP 122/67
== END ==
LOC: PAIN 10:14
DX: M81.0 Age-related osteoporosis without current pathological fracture (principal); G89.4 Chronic pain syndrome; K91.1 Postgastric surgery syndromes; K90.9 Intestinal malabsorption, unspecified; R10.9 Unspecified abdominal pain

== ENCOUNTER → 2018-04-30 | Outpatient (CLI) | payer OTHER, MEDICARE ==
[~2018-04-30] VITALS: Ht 142.2 cm; Wt 59.0 kg
[2018-04-30 12:20] VITALS: BP 134/80
--- NOTE | 2018-04-30 12:22 | NUR ---
Pain Clinic Assessment: 1. History of Osteoarthritis: OSTEOPOROSIS hands knees History of Rheumatoid Arthritis: none 2. Height: 5 ft. 2 in. 157.5 cm. Weight: 130.0 lb. oz. 58.968 kg. Patient's BMI: 23.8 3. Vital Signs: BP: 134/80 Pulse: 95 Resp: 15 Temp: 02 Sat: 95 ECG Mon: 4. Pain Intensity: 7 5. Fall Risk: Dizziness: N Needs help standing or walking: N Fallen in the last 3 months: N Fall risk comments: 6. Patient on Blood Thinner: None 7. History of Hypertension: Y 8. Opioid Therapy greater than 6 weeks: Y Opiate Contract Signed: 09/14/15 9. Risk Assessment Tool Provided: Opioid Risk Tool 10. Functional Assessment Tool: LOW 11. Recreational Drug Use: Never Drug Type: Tobacco Use: Never Smoker Tobacco Type: Amount or Packs/day: How Many Years: Alcohol Use: No Frequency: Quant:
--- NOTE | 2018-05-01 07:52 | HPC ---
[facility] [address] [address] PAIN MANAGEMENT CONSULTATION Name: AUDIE DE LA TORRE Room #: REG [facility] Kimberli.#: [id number] Admission: 04/30/18 ������������������ Attend Phys: Coco Potts Discharge: ������������������ Date of : 41 Report #: [id number] THIS REPORT FOR: //name// CC: Coco Potts Physician staff JESICA VILLATORO DATE OF SERVICE: 04/30/2018 CHIEF COMPLAINT: Chronic abdominal pain. HISTORY OF PRESENT ILLNESS: This is a very pleasant 78-year-old female who returns to the pain clinic today for refill of her medications. She tells me that she is doing quite well on her current medication regimen. She is rating her pain at a 7 today, which is her average pain score. She tells me if she drinks something cold, the cold weather makes her pain worse. Medications and heat or distraction are very helpful. She denies any problems with constipation. She says, in fact, she has more diarrhea than constipation. She recently had a bone scan and continues on her Prolia. She said that she did find out that she is 4 feet 8 inches, which she was surprised that she had decreased so much in her height. The patient tells me otherwise overall, she is doing well and would like a refill of her medications. ALLERGIES: PENICILLIN AND AMLODIPINE. MEDICATIONS: Current list of medications are methadone 10 mg t.i.d., lidocaine patch as needed, colestipol 3 times a day, vitamin B12 injections monthly, vitamin D 5000 units weekly, Prolia subcutaneously, ProEPA 4 tablets daily, Ortho-Tabs 4 tablets daily, Hyzaar 100/25 one tablet daily. PQRS: She has osteoporosis and is being treated for that. She has a history of osteoarthritis in her hands and knees. She denies any rheumatoid arthritis. She is 4 feet 8 inches, weight is 130. BMI is 29.2. Vital signs, blood pressure 134/80, pulse is 95, respirations 14, oxygen sat 95%. Pain score 7/10. Fall risk, denies dizziness, does not need help walking or standing, has not fallen in the last 3 months. She is not on a blood thinner. She does have a history of hypertension. She has been on opioids greater than 6 weeks; therefore, an opioid signed contract is on the chart. Her risk assessment tool is low. Her functional assessment is 38/70. The patient does not use recreational drugs. She is not a smoker and does not drink alcohol. We did check the prescription monitoring system. The patient is filling appropriately with her medications. She is here on a timely fashion, due for her medications today. We will recheck a buccal drug swab on her today as it has been a year [place] [address] PAIN MANAGEMENT CONSULTATION Name: AUDIE DE LA TORRE CHUY Room #: REG CLMonse Rodgers#: [id number] Admission: 04/30/18 ������������������ Attend Phys: Coco Potts Discharge: ������������������ Date of : 41 Report #: [id number] PHYSICAL EXAMINATION: GENERAL: This is a well-developed, well-nourished, well-hydrated 78-year-old female who appears her stated age, placing her current pain score at 7/10. HEENT: Normocephalic, atraumatic. Pupils equal, round and reactive to light. EXTREMITIES: No clubbing, no cyanosis, no edema present. MUSCULOSKELETAL: Lower extremity strength judged to be 4/5 in all major muscle groups. She does use a walker. She has upper extremity strength judged to be 5/5 in all major muscle groups. Her gait is mildly antalgic. ASSESSMENT: 1. Chronic abdominal pain. 2. Malabsorption syndrome. 3. Dumping syndrome. 4. Osteoporosis. 5. Chronic intractable pain. We reviewed the fact that opiate medications are being used to provide analgesia adequate to support activities of daily living, not attempting to achieve a specific pain score on the 0-10 Visual Analog Scale. The current opiate medications are providing sufficient analgesia to allow the patient to participate in activities of daily living. The patient is not exhibiting any aberrant behavior suggestive of drug diversion. The patient is not having any adverse reactions to medications. The patient is not suffering from daytime somnolence or mental acuity changes. The patient is managing opiate-induced constipation with appropriate wrbh-fkm-mprjbyo agents and dietary considerations. The patient was counseled on concern for caution with operating a motor vehicle while using opiate medications. A physical exam was performed and the patient's functional status was evaluated. All patients with back pain were advised against the bed rest greater than 4 days and were advised to return to normal activities. Pain score assessment was noted and the treatment plan was reviewed with the patient. All current medications, both prescribed and OTC were reviewed and reconciled on the electronic medical record. Tobacco screening was accomplished and smoking cessation was advised when indicated. BMI was noted and diet/exercise modification was recommended for all patients following outside normal parameters. I reviewed with the patient today their responsibilities to safeguard prescription medications, reviewed their responsibility to utilize medications only as prescribed by the physician. They are to seek and receive pain medications only from 1 physician group ([facility]). They are to use 1 pharmacy and keep the clinic informed if they change pharmacies. Their responsibilities include making followup visits in a timely fashion and to avoid abrupt discontinuation of medication usage. Their responsibilities further include bringing their medications (bottles from the pharmacy with residual [facility] [address] [place] [address] PAIN MANAGEMENT CONSULTATION Name: AUDIE DE LA TORRE [id number] Admission: 04/30/18 ������������������ Attend Phys: Coco Potts Discharge: ������������������ Date of : 42 Report #: [id number] pills) to the visit for possible confirmation of pill counts and the patient understands it is their responsibility to submit to random drug screens to ensure both that the medications prescribed are present, and that no other controlled substances are present. All prescriptions provided today were generated electronically. PLAN: 1. We discussed treatment options with the patient today. The patient tells me that she is doing well with her current regimen and would like to continue them. Prescription was given today for methadone 10 mg 3 times a day, #90 with 1 refill for today and again in 4 weeks[address] the patient's total morphine equivalent at 90 MME and therefore, she is seen on a 2-month basis. 2. We will recheck a buccal drug screen on the patient today since it has been over a year since her last random drug screen. 3. Dr. Alessandro De La Torre did come see the patient briefly today. He is collaborated on this patient's care with me today. 4. She will see Dr. Alessandro De La Torre in followup in 2 months' time. ��������������������������������������������� <ELECTRONICALLY SIGNED> ���������������������������������������� By: Coco Potts ��������������������������������������������� 05/01/18 0752 [id number] Coco Potts /eduardo
== END ==
LOC: PAIN 04-23 10:50
DX: R10.9 Unspecified abdominal pain (principal); K90.9 Intestinal malabsorption, unspecified; K91.1 Postgastric surgery syndromes; M81.0 Age-related osteoporosis without current pathological fracture; G89.4 Chronic pain syndrome; Z88.0 Allergy status to penicillin; Z88.8 Allergy status to other drugs, medicaments and biological substances; Z79.899 Other long term (current) drug therapy

== ENCOUNTER → 2018-07-09 | Outpatient (CLI) | payer OTHER, MEDICARE ==
[~2018-07-09] VITALS: Ht 142.2 cm; Wt 58.5 kg
[~2018-07-09] MED LIST changes: +LIPITOR 20 MG T20 M1 PO
[2018-07-09 12:18] VITALS: BP 139/75
--- NOTE | 2018-07-09 12:24 | NUR ---
Pain Clinic Assessment: 1. History of Osteoarthritis: OSTEOPOROSIS hands knees History of Rheumatoid Arthritis: none 2. Height: 4 ft. 8 in. 142.2 cm. Weight: 129.0 lb. oz. 58.514 kg. Patient's BMI: 28.9 3. Vital Signs: BP: 139/75 Pulse: 101 Resp: 17 Temp: 02 Sat: 99 ECG Mon: 4. Pain Intensity: 7 5. Fall Risk: Dizziness: N Needs help standing or walking: N Fallen in the last 3 months: N Fall risk comments: 6. Patient on Blood Thinner: None 7. History of Hypertension: Y 8. Opioid Therapy greater than 6 weeks: Y Opiate Contract Signed: 09/14/15 9. Risk Assessment Tool Provided: Opioid Risk Tool 10. Functional Assessment Tool: 38 11. Recreational Drug Use: Never Drug Type: Tobacco Use: Never Smoker Tobacco Type: Amount or Packs/day: How Many Years: Alcohol Use: No Frequency: Quant:
--- NOTE | 2018-07-16 07:41 | HPC ---
[facility] [place] [address] PAIN MANAGEMENT CONSULTATION Name: AUDIE DE LA TORRE Room #: REG CL MDavis.#: [id number] Admission: 07/09/18 ������������������ Attend Phys: Alessandro De La Torre DO Discharge: ������������������ Date of : 42 Report #: [id number] THIS REPORT FOR: //name// CC: Alessandro De La Torre Physician staff JESICA Tapia DO DATE OF SERVICE: 07/09/2018 CHIEF COMPLAINT: Chronic abdominal pain. HISTORY OF PRESENT ILLNESS: As you know, the patient is a pleasant 78-year-old female who returns today in followup visit for medication management. She suffers from chronic abdominal pain for which she takes methadone 10 mg 3 times a day with good efficacy. She has considered possibly using CBD oil in conjunction with the methadone and wished to discuss this today. She returns requesting refill on medications. She is denying any side effects to therapy including somnolence, decreased mental acuity, disorientation, confusion or mental slowing. She is not having any constipation issues with the medication. ALLERGIES: PENICILLIN, AMLODIPINE. CURRENT MEDICATIONS: Methadone 10 mg t.i.d., Lidoderm patch apply topically as needed, colestipol 3 times a day, vitamin B12 injections monthly, vitamin D 50,000 units per week, Prolia subcutaneously, ProEPA 4 tablets daily, Ortho-Tabs 4 tabs per day, Hyzaar 100/25 once a day. SOCIAL HISTORY: The patient denies tobacco, alcohol, IV or illicit drug use. She is retired, retired years ago. She is accompanied by her present in room today. PQRS: The patient has known osteoarthritic history of the bilateral hands, bilateral knees and lumbar spine. Denies rheumatoid arthritis. She is placing pain intensity 7/10. She is not a fall risk and has not had a fall in the last 3 months. She is not on blood thinners, but is treated for hypertension. She is on chronic opioids and has a low opioid addiction potential. She is placing pain impact score at 38/70, moderate interference of daily activities secondary to pain. PHYSICAL EXAMINATION: VITAL SIGNS: Blood pressure 139/75, pulse 101, respiratory rate 17 and unlabored, the patient is 99% on room air. Height 5 feet 8 inches tall, weight 129 pounds, BMI calculated 28.9. GENERAL: Well-developed, well-nourished, well-hydrated 78-year-old female appearing stated age, pain is rated around 7/10. [address] [address] PAIN MANAGEMENT CONSULTATION Name: BRITTAUDIE CHUY Room #: REG CLI [facility].#: [id number] Admission: 07/09/18 ������������������ Attend Phys: Alessandro De La Torre DO Discharge: ������������������ Date of : 41 Report #: [id number] HEENT: Normocephalic, atraumatic. Pupils equal, round, reactive to light. EXTREMITIES: Show no clubbing, no cyanosis and no edema. ABDOMEN: There is palpatory tenderness over the abdomen. No specific trigger points, no hepatosplenomegaly, no guarding, no rebound. ASSESSMENT: 1. Chronic abdominal pain. 2. Malabsorption syndrome. 3. Dumping syndrome. 4. Osteoporosis. 5. Chronic intractable pain. PLAN: 1. The patient returns today in followup visit for medication management. She feels the combination of methadone along with changes in diet have improved her overall pain. Despite this improvement, she reports pain score 7/10, which is fairly typical for her. Despite any changes in medication therapy, she remains at 7/10. This is with escalating doses of methadone and reducing doses of methadone. It does appear the methadone is providing some benefit, but I believe the lowest most effective dose is the appropriate treatment course. The patient and I discussed this again today. She is amenable to continue the methadone 3 times a day. 2. We reviewed the fact that opiate medications are being used to provide analgesia adequate to support activities of daily living, not attempting to achieve a specific pain score on the 0-10 Visual Analog Scale. The current opiate medications are providing sufficient analgesia to allow the patient to participate in activities of daily living. The patient is not exhibiting any aberrant behavior suggestive of drug diversion. The patient is not having any adverse reactions to medications. The patient is not suffering from daytime somnolence or mental acuity changes. The patient is managing opiate-induced constipation with appropriate ownn-irw-enunauw agents and dietary considerations. The patient was counseled on concern for caution with operating a motor vehicle while using opiate medications. A physical exam was performed and the patient's functional status was evaluated. All patients with back pain were advised against the bed rest greater than 4 days and were advised to return to normal activities. Pain score assessment was noted and the treatment plan was reviewed with the patient. All current medications, both prescribed and OTC were reviewed and reconciled on the electronic medical record. Tobacco screening was accomplished and smoking cessation was advised when indicated. BMI was noted and diet/exercise modification was recommended for all patients following outside normal parameters. I reviewed with the patient today their responsibilities to safeguard prescription medications, reviewed their responsibility to utilize medications [address] [address] PAIN MANAGEMENT CONSULTATION Name: AUDIE DE LA TORRE Room #: REG CLI Vishal#: [id number] Admission: 07/09/18 ������������������ Attend Phys: Alessandro OzunaYanet De La Torre DO Discharge: ������������������ Date of : 41 Report #: [id number] only as prescribed by the physician. They are to seek and receive pain medications only from 1 physician group ( [facility]). They are to use 1 pharmacy and keep the clinic informed if they change pharmacies. Their responsibilities include making followup visits in a timely fashion and to avoid abrupt discontinuation of medication usage. Their responsibilities further include bringing their medications (bottles from the pharmacy with residual pills) to the visit for possible confirmation of pill counts and the patient understands it is their responsibility to submit to random drug screens to ensure both that the medications prescribed are present, and that no other controlled substances are present. All prescriptions provided today were generated electronically. 3. The patient was provided prescription of methadone 10 mg dose 1 tab p.o. t.i.d., I have given the patient #90 tablets, releasing today and 4 weeks from today, 2 months' worth of medication. 4. The patient and I had a very long discussion about CBD oils and how they may be effective for abdominal issues. We have used dronabinol, a byproduct of tetrahydrocannabinoid synthesis for patients with chemotherapy induced nausea and vomiting, certainly CBD oil could provide some benefit. I did advise the patient if she wishes to try the therapy, she is to contact our clinic to advise that she started this treatment. There is no tetrahydrocannabinoid in this substance and is fully legal in the States of [place] and [place]. If she wishes to try the medication, we would like to hear the response. At this point, I have no reason to not allow the patient to trial this therapy. 5. We will see the patient back in followup visit in 2 months. ��������������������������������������������� <ELECTRONICALLY SIGNED> ���������������������������������������� By: Alessandro De La Torre DO ��������������������������������������������� 07/16/18 0741 0831 08 Alessandro De La Torre DO /nt
== END ==
LOC: PAIN 06:53
DX: K90.9 Intestinal malabsorption, unspecified (principal); K91.1 Postgastric surgery syndromes; G89.4 Chronic pain syndrome; M81.0 Age-related osteoporosis without current pathological fracture; Z79.899 Other long term (current) drug therapy

== ENCOUNTER → 2018-09-10 | Outpatient (CLI) | payer OTHER, MEDICARE ==
[~2018-09-10] VITALS: Ht 154.9 cm; Wt 58.6 kg
[2018-09-10 10:47] VITALS: BP 156/87
--- NOTE | 2018-09-10 10:49 | NUR ---
Pain Clinic Assessment: 1. History of Osteoarthritis: OSTEOPOROSIS hands knees History of Rheumatoid Arthritis: none 2. Height: 5 ft. 1 in. 154.9 cm. Weight: 129.2 lb. oz. 58.605 kg. Patient's BMI: 24.4 3. Vital Signs: BP: 156/87 Pulse: 107 Resp: 16 Temp: 02 Sat: 94 ECG Mon: 4. Pain Intensity: 6 5. Fall Risk: Dizziness: N Needs help standing or walking: N Fallen in the last 3 months: N Fall risk comments: 6. Patient on Blood Thinner: None 7. History of Hypertension: Y 8. Opioid Therapy greater than 6 weeks: Y Opiate Contract Signed: 09/14/15 9. Risk Assessment Tool Provided: Opioid Risk Tool 10. Functional Assessment Tool: 38 11. Recreational Drug Use: Never Drug Type: Tobacco Use: Never Smoker Tobacco Type: Amount or Packs/day: How Many Years: Alcohol Use: No Frequency: Quant:
--- NOTE | 2018-09-12 09:22 | HPC ---
[facility] [place] [address] PAIN MANAGEMENT CONSULTATION Name: AUDIE DE LA TORRE Room #: REG CL MDavis.#: [id number] Admission: 09/10/18 ������������������ Attend Phys: Coco Potts Discharge: ������������������ Date of : 41 Report #: [id number] THIS REPORT FOR: //name// CC: Coco Potts Physician staff JESICA VILLATORO DATE OF SERVICE: 09/10/2018 CHIEF COMPLAINT: Chronic abdominal pain. HISTORY OF PRESENT ILLNESS: This is a very pleasant 78-year-old female who returns to the pain clinic today with her for followup visit for medication management. She has chronic abdominal pain and uses methadone to help treat this. She finds that very effective in controlling her pain as well as heat and distraction. She tells me that drinking cold liquids and cold weather make her pain worse as well as diarrhea. Her pain score today is a 6/10, which she tells me is her average pain score. She does not suffer from constipation, but does have occasional diarrhea that goes as a result of her multiple abdominal surgeries, so she feels that the methadone does slow her gut down some and does aid with her decreased diarrhea. ALLERGIES: PENICILLIN AND AMLODIPINE. CURRENT LIST OF MEDICATIONS: Methadone 10 mg 3 times a day, atorvastatin 40 mg at bedtime, Lidoderm patch, colestipol, vitamin B12, vitamin D, Prolia, ProEPA, calcium and Hyzaar PQRS: 1. She has known arthritic changes in her hands, knees and lumbar spine. Denies any rheumatoid arthritis. 2. Height is 5 feet 1 inch, weight is 129, BMI is 24. 3. Vital signs: Blood signs 156/87, pulse is 107, respirations 16, oxygen sat is 94. 4. Pain score 6/10. 5. Fall risk. Denies dizziness. Does not need help with walking or standing. She has not fallen in the last 3 months. 6. The patient is not on any blood thinners. Does have a history of hypertension. 7. Opiate therapy is greater than 6 weeks; therefore, an opiate signed contract is on the chart. Risk assessment tool is low. Functional assessment is 38/70. 8. Recreational drug use, she denies. Does not use tobacco and does not drink alcohol. According to the prescription monitoring system, the patient is filling appropriately for her medications and is due for that medication. There is a [facility] [address] [place] [address] PAIN MANAGEMENT CONSULTATION Name: BRITTAUDIE CHUY Room #: REG OLGA Rodgers#: [id number] Admission: 09/10/18 ������������������ Attend Phys: Coco Potts Discharge: ������������������ Date of : 41 Report #: [id number] recent drug screen on the chart that is appropriate for her prescribed medications. PHYSICAL EXAMINATION: GENERAL: This is a well-developed, well-nourished, well-hydrated 78-year-old female who appears her stated age. Placing her pain score today at 6/10. HEENT: Normocephalic, atraumatic. Pupils equal, round and reactive to light. Mucous membranes are moist. EXTREMITIES: No clubbing, no cyanosis, no edema. She does have a large ecchymosis area on her left hand in various stages of healing. ABDOMEN: Palpable tenderness over her abdomen. No guarding, no rebounding, no hepatosplenomegaly. ASSESSMENT: 1. Chronic abdominal pain. 2. Malabsorption syndrome. 3. Dumping syndrome. 4. Osteoporosis. 5. Chronic intractable pain. We reviewed the fact that opiate medications are being used to provide analgesia adequate to support activities of daily living, not attempting to achieve a specific pain score on the 0-10 Visual Analog Scale. The current opiate medications are providing sufficient analgesia to allow the patient to participate in activities of daily living. The patient is not exhibiting any aberrant behavior suggestive of drug diversion. The patient is not having any adverse reactions to medications. The patient is not suffering from daytime somnolence or mental acuity changes. The patient is managing opiate-induced constipation with appropriate wher-xai-scpraiw agents and dietary considerations. The patient was counseled on concern for caution with operating a motor vehicle while using opiate medications. A physical exam was performed and the patient's functional status was evaluated. All patients with back pain were advised against the bed rest greater than 4 days and were advised to return to normal activities. Pain score assessment was noted and the treatment plan was reviewed with the patient. All current medications, both prescribed and OTC were reviewed and reconciled on the electronic medical record. Tobacco screening was accomplished and smoking cessation was advised when indicated. BMI was noted and diet/exercise modification was recommended for all patients following outside normal parameters. I reviewed with the patient today their responsibilities to safeguard prescription medications, reviewed their responsibility to utilize medications only as prescribed by the physician. They are to seek and receive pain medications only from 1 physician group ([facility]). They are to use 1 [facility] [address] [place] [address] PAIN MANAGEMENT CONSULTATION Name: AUDIE DE LA TORRE Room #: REG OLGA Rodgers#: [id number] Admission: 09/10/18 ������������������ Attend Phys: Coco Potts Discharge: ������������������ Date of : 41 Report #: [id number] pharmacy and keep the clinic informed if they change pharmacies. Their responsibilities include making followup visits in a timely fashion and to avoid abrupt discontinuation of medication usage. Their responsibilities further include bringing their medications (bottles from the pharmacy with residual pills) to the visit for possible confirmation of pill counts and the patient understands it is their responsibility to submit to random drug screens to ensure both that the medications prescribed are present, and that no other controlled substances are present. All prescriptions provided today were generated electronically. PLAN: 1. We discussed treatment options with the patient today. The patient feels that her pain medications are very beneficial in helping control her abdominal pain. The methadone also helps reduce some of her dumping syndrome from her multiple abdominal surgeries; therefore, she does not suffer from constipation and has less diarrhea by using the narcotics. 2. Script given today for methadone 10 mg 3 times a day, #90 for scripts today and 4-week release. This places the patient at 90 morphine mEq according to the CDC guidelines, so she is seen every 2 months. 3. The patient is seen with Dr. Alessandro De La Torre who collaborated care and saw the patient as well today. ��������������������������������������������� <ELECTRONICALLY SIGNED> ���������������������������������������� By: Coco Potts ��������������������������������������������� 09/12/18 0922 1225 [id number] Coco Potts /eduardo
== END ==
LOC: PAIN 06:50
DX: K90.9 Intestinal malabsorption, unspecified (principal); K91.1 Postgastric surgery syndromes; G89.4 Chronic pain syndrome; M81.0 Age-related osteoporosis without current pathological fracture

== ENCOUNTER → 2018-11-05 | Outpatient (CLI) | payer OTHER, MEDICARE ==
[~2018-11-05] VITALS: Ht 154.9 cm; Wt 59.1 kg
[2018-11-05 09:50] VITALS: BP 133/73
--- NOTE | 2018-11-05 10:03 | NUR ---
Pain Clinic Assessment: 1. History of Osteoarthritis: OSTEOPOROSIS HANDS KNEES History of Rheumatoid Arthritis: NONE 2. Height: 5 ft. 1 in. 154.9 cm. Weight: 130.2 lb. oz. 59.058 kg. Patient's BMI: 24.6 3. Vital Signs: BP: 133/73 Pulse: 87 Resp: 16 Temp: 02 Sat: 95 ECG Mon: 4. Pain Intensity: 5 5. Fall Risk: Dizziness: N Needs help standing or walking: Y Fallen in the last 3 months: N Fall risk comments: 6. Patient on Blood Thinner: None 7. History of Hypertension: Y 8. Opioid Therapy greater than 6 weeks: Y Opiate Contract Signed: 09/14/15 9. Risk Assessment Tool Provided: Opioid Risk Tool 10. Functional Assessment Tool: 11. Recreational Drug Use: Never Drug Type: Tobacco Use: Never Smoker Tobacco Type: Amount or Packs/day: How Many Years: Alcohol Use: No Frequency: Quant:
--- NOTE | 2018-11-06 14:13 | HPC ---
[facility] [address] [place] [address] PAIN MANAGEMENT CONSULTATION Name: AUDIE DE LA TORRE Room #: REG CL MDavis.#: [id number] Admission: 11/05/18 Attend Phys: Coco Potts Discharge: Date of : 41 Report #: [id number] THIS REPORT FOR: //name// CC: Coco Potts Physician staff JESICA VILLATORO DATE OF SERVICE: 11/05/2018 CHIEF COMPLAINT: Chronic abdominal pain. HISTORY OF PRESENT ILLNESS: This is a very pleasant 78-year-old female who returns to the pain clinic today for refill of her medications that she uses to help treat her ongoing chronic abdominal pain, which she rates a 5/10 today. She feels that the methadone is quite helpful in controlling this as well as using heat and distraction. She tells me that her abdominal pain as a cramping, aching feeling that is exacerbated by drinking something cold or cold weather. She denies any problems with constipation because she does suffer sometimes with diarrhea when her abdominal pain is flared, she feels that the methadone keeps her more regular. She finds it very beneficial in controlling her pain and would like a refill of that medicine today. ALLERGIES: PENICILLIN AND AMLODIPINE. CURRENT LIST OF MEDICATIONS: Methadone 10 mg q. 8 hours, Lipitor 20 mg, colestipol, vitamin B12, vitamin D, Prolia, ProEPA, Ortho-Tabs, and Hyzaar 100/25. PQRS: 1. She has arthritic changes in her hands, knees and lumbar spine. She denies any rheumatoid arthritis. 2. Height is 5 feet 1 inch, weight is 130, BMI is 24. 3. Vital signs 133/73, pulse is 87, respirations 16, oxygen sat is 95. 4. Pain score is 5/10. 5. Denies dizziness. Does use a walker and has not fallen in the last 3 months. 6. The patient is not on any blood thinners, does take medicine for hypertension. Opioid therapy is greater than 6 weeks; therefore, an opioid signed contract is on the chart. Risk assessment tool is low. Functional assessment is 38/70. 7. Recreational drug use, she denies. She is not a smoker and does not drink alcohol. According to the prescription monitoring system, the patient is filling appropriately for her medications. There is a recent drug screen on the chart [address] [address] PAIN MANAGEMENT CONSULTATION Name: BRITTAUDIEREESE VERA Room #: REG OLGA Rodgers#: [id number] Admission: 11/05/18 Attend Phys: Coco Potts Discharge: Date of : 41 Report #: [id number] as well that is appropriate for her medications. PHYSICAL EXAMINATION: GENERAL: This is a well-developed, well-nourished 78-year-old female who appears her stated age, placing her current pain score today at 5/10. HEENT: Normocephalic, atraumatic. Extraocular eye muscles are intact. Mucous membranes are moist. ABDOMEN: Palpable tenderness over her lower abdomen. No guarding, no rebounding or hepatosplenomegaly. EXTREMITIES: No clubbing, no cyanosis, no edema. Lower extremity strength judged to be 5/5 in all major muscle groups. The patient walks with a slow normal gait. ASSESSMENT: 1. Chronic abdominal pain. 2. Malabsorption syndrome. 3. Dumping syndrome. 4. Osteoporosis. 5. Chronic intractable pain. We reviewed the fact that opiate medications are being used to provide analgesia adequate to support activities of daily living, not attempting to achieve a specific pain score on the 0-10 Visual Analog Scale. The current opiate medications are providing sufficient analgesia to allow the patient to participate in activities of daily living. The patient is not exhibiting any aberrant behavior suggestive of drug diversion. The patient is not having any adverse reactions to medications. The patient is not suffering from daytime somnolence or mental acuity changes. The patient is managing opiate-induced constipation with appropriate ehck-wql-thlxvgr agents and dietary considerations. The patient was counseled on concern for caution with operating a motor vehicle while using opiate medications. A physical exam was performed and the patient's functional status was evaluated. All patients with back pain were advised against the bed rest greater than 4 days and were advised to return to normal activities. Pain score assessment was noted and the treatment plan was reviewed with the patient. All current medications, both prescribed and OTC were reviewed and reconciled on the electronic medical record. Tobacco screening was accomplished and smoking cessation was advised when indicated. BMI was noted and diet/exercise modification was recommended for all patients following outside normal parameters. I reviewed with the patient today their responsibilities to safeguard prescription medications, reviewed their responsibility to utilize medications only as prescribed by the physician. They are to seek and receive pain medications only from 1 physician group ( [facility]). They are to use [address] [address] PAIN MANAGEMENT CONSULTATION Name: AUDIE DE LA TORRE Room #: REG OLGA Rodgers#: [id number] Admission: 11/05/18 Attend Phys: Coco Potts Discharge: Date of : 41 Report #: [id number] pharmacy and keep the clinic informed if they change pharmacies. Their responsibilities include making followup visits in a timely fashion and to avoid abrupt discontinuation of medication usage. Their responsibilities further include bringing their medications (bottles from the pharmacy with residual pills) to the visit for possible confirmation of pill counts and the patient understands it is their responsibility to submit to random drug screens to ensure both that the medications prescribed are present, and that no other controlled substances are present. All prescriptions provided today were generated electronically. PLAN: 1. We discussed treatment options with the patient today. The patient is doing quite well on her current regimen of methadone 10 mg 3 times a day. This was refilled for #90 tablets for today and again in 4 weeks. According to the CDC guidelines, this places the patient at 90 morphine milliequivalents; therefore, she is seen every 2 months. The patient will call for an appointment. 2. The patient is seen today in collaboration with Dr. Alessandro De La Torre who did see the patient as well. <ELECTRONICALLY SIGNED> By: Coco Potts 11/06/18 1413 [id number] Coco Potts /eduardo
== END ==
LOC: PAIN 06:55
DX: R10.9 Unspecified abdominal pain (principal); G89.29 Other chronic pain; M81.0 Age-related osteoporosis without current pathological fracture; G89.4 Chronic pain syndrome; K90.9 Intestinal malabsorption, unspecified; K91.1 Postgastric surgery syndromes; Z88.0 Allergy status to penicillin; Z88.8 Allergy status to other drugs, medicaments and biological substances

== ENCOUNTER → 2018-12-31 | Outpatient (CLI) | payer OTHER, MEDICARE ==
[~2018-12-31] VITALS: Ht 154.9 cm; Wt 59.8 kg
[2018-12-31 10:20] VITALS: BP 123/89
--- NOTE | 2018-12-31 10:35 | NUR ---
Document wound assessment on appropriate Wound Pressure, Monitor intervention!
--- NOTE | 2018-12-31 10:35 | NUR ---
Pain Clinic Assessment: 1. History of Osteoarthritis: OSTEOPOROSIS HANDS KNEES History of Rheumatoid Arthritis: NONE 2. Height: 5 ft. 1 in. 154.9 cm. Weight: 131.8 lb. oz. 59.784 kg. Patient's BMI: 24.9 3. Vital Signs: BP: 123/89 Pulse: 96 Resp: 14 Temp: 02 Sat: 96 ECG Mon: 4. Pain Intensity: 7 5. Fall Risk: Dizziness: N Needs help standing or walking: Y Fallen in the last 3 months: N Fall risk comments: 6. Patient on Blood Thinner: None 7. History of Hypertension: Y 8. Opioid Therapy greater than 6 weeks: Y Opiate Contract Signed: 09/14/15 9. Risk Assessment Tool Provided: low-1 10. Functional Assessment Tool: 11. Recreational Drug Use: Never Drug Type: Tobacco Use: Never Smoker Tobacco Type: Amount or Packs/day: How Many Years: Alcohol Use: No Frequency: Quant:
--- NOTE | 2019-01-01 13:05 | HPC ---
[facility] [place] [address] PAIN MANAGEMENT CONSULTATION Name: AUDIE DE LA TORRE Room #: REG OLGA Ag.#: [id number] Admission: 12/31/18 Attend Phys: Coco Potts Discharge: Date of : 42 Report #: [id number] THIS REPORT FOR: //name// CC: Coco Potts Physician staff JESICA VILLATORO DATE OF SERVICE: 12/31/2018 CHIEF COMPLAINT: Chronic abdominal pain. HISTORY OF PRESENT ILLNESS: This is a very pleasant 78-year-old female, who returns to the pain clinic today for a refill of her medications, she uses to help her chronic abdominal pain. She is rating her pain a 7/10, which she said is slightly elevated for her today. She had eaten food that upset her stomach and caused her some increased pain. Normally, her pain is slightly lower. She says the cold weather also aggravates her as well as having diarrhea. The medications are very beneficial as well as heat and distraction. She has been on methadone for about 10 years and finds overall it helps her be as active and enjoy life with her family and do things around the house. She denies problems with constipation and she suffers from diarrhea constantly. She feels that this may even help that symptom of her pain be slightly better. Today, she will like refills of her methadone. ALLERGIES: PENICILLIN and AMLODIPINE. CURRENT LIST OF MEDICATIONS: Methadone 10 mg every 8 hours, atorvastatin 20 mg at bedtime, Lidoderm patch p.r.n., colestipol t.i.d., vitamin B12, vitamin D, Prolia, Ortho-Tabs, and Hyzaar 100/25 daily. PQRS: 1. She has osteoporosis and osteoarthritis in her hands and knees. She does not have rheumatoid arthritis. 2. Height is 5 feet and 1 inch, weight is 131, and BMI is 24. 3. Vital signs 123/89, pulse is 96, respirations 14, and oxygen sat is 96. 4. Pain score is 7/10. 5. Denies dizziness. Does need help walking and has not fallen in the last 3 months. 6. The patient is not on any blood thinners, but does take medicine for hypertension. 7. Opiate therapy is greater than 6 weeks. Therefore, an opioid signed contract is on the chart. Risk assessment tool is low. Functional assessment is . Recreational drug use, she denies. She is not a smoker and does not drink alcohol. According to the prescription monitoring system, patient is filling [address] [address] PAIN MANAGEMENT CONSULTATION Name: AUDIE DE LA TORRE [id number] Admission: 12/31/18 Attend Phys: Coco Potts Discharge: Date of : 41 Report #: [id number] appropriately for her medications and is filling them in a timely fashion. She has a recent drug screen on the chart that is appropriate as well for her medicines. PHYSICAL EXAMINATION: GENERAL: This is a well-developed and well-nourished 78-year-old female, who appears her stated age, placing her current pain score at 7/10 today. HEENT: Normocephalic and atraumatic. Extraocular eye muscles are intact. Mucous membranes are moist. ABDOMEN: No guarding and no rebounding. She has palpable tenderness over her lower quadrant, right greater than the left. ASSESSMENT: 1. Chronic abdominal pain. 2. Malabsorption syndrome. 3. Dumping syndrome. 4. Osteoporosis. 5. Chronic intractable pain. 6. Complex medical management under terms of written opioid agreement. We reviewed the fact that opiate medications are being used to provide analgesia adequate to support activities of daily living, not attempting to achieve a specific pain score on the 0-10 Visual Analog Scale. The current opiate medications are providing sufficient analgesia to allow the patient to participate in activities of daily living. The patient is not exhibiting any aberrant behavior suggestive of drug diversion. The patient is not having any adverse reactions to medications. The patient is not suffering from daytime somnolence or mental acuity changes. The patient is managing opiate-induced constipation with appropriate cyik-ewv-mnalxmc agents and dietary considerations. The patient was counseled on concern for caution with operating a motor vehicle while using opiate medications. A physical exam was performed and the patient's functional status was evaluated. All patients with back pain were advised against the bed rest greater than 4 days and were advised to return to normal activities. Pain score assessment was noted and the treatment plan was reviewed with the patient. All current medications, both prescribed and OTC were reviewed and reconciled on the electronic medical record. Tobacco screening was accomplished and smoking cessation was advised when indicated. BMI was noted and diet/exercise modification was recommended for all patients following outside normal parameters. I reviewed with the patient today their responsibilities to safeguard prescription medications, reviewed their responsibility to utilize medications only as prescribed by the physician. They are to seek and receive pain medications only from 1 physician group ([facility]). They are to use [address] [address] PAIN MANAGEMENT CONSULTATION Name: AUDIE DE LA TORRE Room #: REG CLMonse Rodgers#: [id number] Admission: 12/31/18 Attend Phys: Coco Potts Discharge: Date of : 41 Report #: [id number] pharmacy and keep the clinic informed if they change pharmacies. Their responsibilities include making followup visits in a timely fashion and to avoid abrupt discontinuation of medication usage. Their responsibilities further include bringing their medications (bottles from the pharmacy with residual pills) to the visit for possible confirmation of pill counts and the patient understands it is their responsibility to submit to random drug screens to ensure both that the medications prescribed are present, and that no other controlled substances are present. All prescriptions provided today were generated electronically. PLAN: 1. We discussed treatment options with the patient today. The patient finds the methadone very beneficial in helping reduce her pain. She is able to keep very active with her family and grandchildren, which she has brought pictures of today. Scripts were refilled for her methadone 10 mg, #90, for today and 4 and 8-week. This does place the patient at 90 morphine milliequivalents. Therefore, she was given 2 months of medications. 2. The patient denies any daytime sleepiness or constipation from her medicines. 3. The patient is seen in collaboration with Dr. Alessandro De La Torre. The patient will return in 2 months to see him for an appointment. <ELECTRONICALLY SIGNED> By: Coco Potts 01/01/19 1305 1232 2300 Coco Potts /nt
== END ==
LOC: PAIN 06:53
DX: Z76.0 Encounter for issue of repeat prescription (principal); R10.9 Unspecified abdominal pain; G89.4 Chronic pain syndrome; M81.8 Other osteoporosis without current pathological fracture; M17.0 Bilateral primary osteoarthritis of knee; I10 Essential (primary) hypertension; Z88.0 Allergy status to penicillin; Z88.1 Allergy status to other antibiotic agents; Z79.899 Other long term (current) drug therapy; Z79.891 Long term (current) use of opiate analgesic

== ENCOUNTER → 2019-03-11 | Outpatient (CLI) | payer OTHER, MEDICARE ==
[~2019-03-11] VITALS: Ht 154.9 cm; Wt 60.1 kg
[2019-03-11 10:51] VITALS: BP 148/76
--- NOTE | 2019-03-11 10:57 | NUR ---
Pain Clinic Assessment: 1. History of Osteoarthritis: OSTEOPOROSIS HANDS KNEES History of Rheumatoid Arthritis: NONE 2. Height: 5 ft. 1 in. 154.9 cm. Weight: 132.4 lb. oz. 60.056 kg. Patient's BMI: 25.0 3. Vital Signs: BP: 148/76 Pulse: 108 Resp: 18 Temp: 02 Sat: 96 ECG Mon: 4. Pain Intensity: 8 5. Fall Risk: Dizziness: N Needs help standing or walking: Y Fallen in the last 3 months: N Fall risk comments: 6. Patient on Blood Thinner: None 7. History of Hypertension: Y 8. Opioid Therapy greater than 6 weeks: Y Opiate Contract Signed: 09/14/15 9. Risk Assessment Tool Provided: low-1 10. Functional Assessment Tool: 11. Recreational Drug Use: Never Drug Type: Tobacco Use: Never Smoker Tobacco Type: Amount or Packs/day: How Many Years: Alcohol Use: No Frequency: Quant:
--- NOTE | 2019-03-12 08:32 | HPC ---
[facility] [address] [address] PAIN MANAGEMENT CONSULTATION Name: AUDIE DE LA TORRE Room #: REG CL Kimberli.#: [id number] Admission: 03/11/19 Attend Phys: Coco Potts Discharge: Date of : 41 Report #: [id number] THIS REPORT FOR: //name// CC: Coco De La Torre DO Physician staff JESICA VILLATORO DATE OF SERVICE: 03/11/2019 CHIEF COMPLAINT: Chronic abdominal pain. HISTORY OF PRESENT ILLNESS: This is a pleasant 78-year-old female who returns to the pain clinic today for refill of her methadone that she uses to help treat her ongoing abdominal pain. She reports the pain score of 8/10. She feels that is slightly elevated today. Her stomach has been bothering her the last few days, normally cold weather and drinking cold items do aggravate her abdominal pain. She feels the methadone is usually beneficial as well as heat or distraction. She denies any problems with constipation. She does occasionally have diarrhea as a result of her ongoing abdominal issues. Today, she would like a refill of her methadone. ALLERGIES: PENICILLIN and AMLODIPINE. CURRENT LIST OF MEDICATIONS: Methadone 10 mg t.i.d., atorvastatin, Lidoderm patch, colestipol, vitamin B12, vitamin D, Prolia, calcium, and Hyzaar. PQRS: 1. She has osteoporosis and osteoarthritis in her hands and knees. She is not being treated for rheumatoid arthritis. 2. Height is 5 feet 1 inch, weight is 132, BMI is 25. 3. Vital signs: Blood pressure 148/76, pulse is 108, respirations 18, oxygen sat is 96. 4. Pain score is 8/10. 5. Denies dizziness. Does need a walker for ambulation and has not fallen in the last 3 months. 6. The patient is not on any blood thinners, but does take medicine for hypertension. 7. Opioid therapy is greater than 6 weeks; therefore, an opioid signed contract is on the chart. Risk assessment tool is low. Functional assessment is . 8. Recreational drug use, she denies. She is not a smoker and does not drink alcohol. According to the prescription monitoring system, the patient is filling appropriately for her medications in a timely fashion. According to the CDC guidelines, her morphine mEq is 90 MME. She has been stable on these meds for [address] [address] PAIN MANAGEMENT CONSULTATION Name: AUDIE DE LA TORRE CHUY Room #: REG OLGA Rodgers#: [id number] Admission: 03/11/19 Attend Phys: Coco Potts Discharge: Date of : 41 Report #: [id number] quite some time. PHYSICAL EXAMINATION: GENERAL: This is a well-developed, well-nourished 78-year-old female who appears her stated age, placing her current pain score at 8/10 today. HEENT: Normocephalic, atraumatic. Extraocular eye muscles are intact. ABDOMEN: No guarding or rebounding present. She does have tenderness over her upper and lower quadrants today, greater on the right quadrants than the left. ASSESSMENT: 1. Chronic abdominal pain. 2. Malabsorption syndrome. 3. Dumping syndrome. 4. Osteoporosis. 5. Chronic intractable pain. 6. Complex medical management under terms of written opioid agreement. We reviewed the fact that opiate medications are being used to provide analgesia adequate to support activities of daily living, not attempting to achieve a specific pain score on the 0-10 Visual Analog Scale. The current opiate medications are providing sufficient analgesia to allow the patient to participate in activities of daily living. The patient is not exhibiting any aberrant behavior suggestive of drug diversion. The patient is not having any adverse reactions to medications. The patient is not suffering from daytime somnolence or mental acuity changes. The patient is managing opiate-induced constipation with appropriate njdr-gpq-lrugppe agents and dietary considerations. The patient was counseled on concern for caution with operating a motor vehicle while using opiate medications. PLAN: We discussed treatment options with the patient today. The patient finds the methadone very beneficial in controlling most of her pain. She is able to be as active as she would like by using this medication. We will send 2 months of medications to her [facility] pharmacy for methadone 10 mg, #90, for today and 4-week release. Dr. Alessandro De La Torre collaborated care with this patient and she will return to see him in 2 months. <ELECTRONICALLY SIGNED> By: Coco Potts 03/12/19 0832 1203 [id number] Coco Potts /eduardo
== END ==
LOC: PAIN 06:56
DX: R10.9 Unspecified abdominal pain (principal); K90.9 Intestinal malabsorption, unspecified; M81.0 Age-related osteoporosis without current pathological fracture; G89.4 Chronic pain syndrome; Z79.891 Long term (current) use of opiate analgesic

== ENCOUNTER → 2019-05-06 | Outpatient (CLI) | payer OTHER, MEDICARE ==
[~2019-05-06] VITALS: Ht 154.9 cm; Wt 60.3 kg
[2019-05-06 11:31] VITALS: BP 138/81
--- NOTE | 2019-05-06 11:42 | NUR ---
Pain Clinic Assessment: 1. History of Osteoarthritis: OSTEOPOROSIS HANDS KNEES History of Rheumatoid Arthritis: NONE 2. Height: 5 ft. 1 in. 154.9 cm. Weight: 133.0 lb. oz. 60.328 kg. Patient's BMI: 25.1 3. Vital Signs: BP: 138/81 Pulse: 95 Resp: 16 Temp: 02 Sat: 96 ECG Mon: 4. Pain Intensity: 5 5. Fall Risk: Dizziness: N Needs help standing or walking: Y Fallen in the last 3 months: N Fall risk comments: 6. Patient on Blood Thinner: None 7. History of Hypertension: Y 8. Opioid Therapy greater than 6 weeks: Y Opiate Contract Signed: 09/14/15 9. Risk Assessment Tool Provided: low-1 10. Functional Assessment Tool: 11. Recreational Drug Use: Never Drug Type: Tobacco Use: Never Smoker Tobacco Type: Amount or Packs/day: How Many Years: Alcohol Use: No Frequency: Quant:
--- NOTE | 2019-05-07 11:52 | HPC ---
[facility] [place] [address] PAIN MANAGEMENT CONSULTATION Name: AUDIE DE LA TORRE Room #: REG CL M..#: [id number] Admission: 05/06/19 Attend Phys: Alessandro De La Torre DO Discharge: Date of : 41 Report #: [id number] THIS REPORT FOR: cc: JESICA TAPIA DO Physician not on staff Alessandro De La Torre DO ~ DATE OF SERVICE: 05/06/2019 REFERRING PHYSICIAN: Dr. Jesica Tapia. CHIEF COMPLAINT: Chronic abdominal pain, requiring opioid management. HISTORY OF PRESENT ILLNESS: As you know, the patient is a very pleasant 79-year-old female returning today in followup visit, requesting refill of her methadone therapy. She states that she continues to experience chronic abdominal pain, but this is well controlled with the methadone 3 times a day dosing. She is denying side effects of sleepiness, disorientation, confusion, mental slowing with use of the medication. She states that her pain today is no greater than 5/10, which is well tolerated for her. She returns today requesting refill on medications to continue analgesic benefit. ALLERGIES: AMLODIPINE AND PENICILLIN. CURRENT MEDICATIONS: Methadone 10 mg 3 times a day, atorvastatin 20 mg once a day, Lidoderm patch apply topically p.r.n., colestipol 1 gram 3 times a day p.r.n., vitamin B12 injected once monthly, vitamin D 50,000 units once a week, Prolia 60 mg injected as directed, multivitamin 1 tab per day, losartan/hydrochlorothiazide 100/25 mg dose 1 tab per day. SOCIAL HISTORY: The patient denies tobacco, alcohol or IV illicit drug use. She is retired, retired years ago. She is accompanied by her , present in room today. IMAGING: No new imaging available. PQRS: The patient has known arthritic changes of her bilateral hands and bilateral knees. She receives no treatment for rheumatoid arthritis. She is placing current pain score 5/10. She is a fall risk, but has had no fall in the last 3 months. She utilizes a rolling walker for ambulation and balance. She is not on blood thinners, but is treated for hypertension. She is on chronic opioids and has a low opioid addiction potential. Pain impact score today 1370, mild interference of daily activities secondary to pain. PHYSICAL EXAMINATION: [facility] [address] [place] [address] PAIN MANAGEMENT CONSULTATION Name: AUDIE DE LA TORRE Room #: REG CL Vishal#: [id number] Admission: 05/06/19 Attend Phys: Alessandro De La Torre DO Discharge: Date of : 41 Report #: [id number] VITAL SIGNS: Blood pressure 138/81, pulse 95, respiratory rate 16 and unlabored. The patient is 96% on room air. Height 5 feet 1 inch tall, weight 133 pounds, BMI calculated 25.1. GENERAL: Well-developed, well-nourished, well-hydrated kyphotic 79-year-old female appearing stated age, pain is rated today 5/10. HEENT: Normocephalic, atraumatic. Pupils equal, round, reactive to light. EXTREMITIES: Show no clubbing, no cyanosis, and no edema. MUSCULOSKELETAL: There is no tenderness to palpation in the upper or lower quadrants of the abdomen today. The bowel sounds appear normal. ASSESSMENT: 1. Chronic abdominal pain. 2. Malabsorption syndrome. 3. Dumping syndrome. 4. History of osteoporosis with current treatment. 5. Complicated medication management utilizing prescription opioids. 6. Chronic intractable pain. PLAN: 1. The patient returns today in followup visit indicating no side effects to the methadone therapy. She has been on methadone for an extended period of time and has done very well with therapy. She states that the 5/10 pain she is experiencing today is tolerable for her. She requests no changes in medication management and feels that the benefit she receives from these medications far outweighs any potential side effects that she has had in the past, which typically was constipation. The patient wishes to refill medications at current dosing. 2. We reviewed the fact that opiate medications are being used to provide analgesia adequate to support activities of daily living, not attempting to achieve a specific pain score on the 0-10 Visual Analog Scale. The current opiate medications are providing sufficient analgesia to allow the patient to participate in activities of daily living. The patient is not exhibiting any aberrant behavior suggestive of drug diversion. The patient is not having any adverse reactions to medications. The patient is not suffering from daytime somnolence or mental acuity changes. The patient is managing opiate-induced constipation with appropriate hjdc-ytl-nnmadml agents and dietary considerations. The patient was counseled on concern for caution with operating a motor vehicle while using opiate medications. A physical exam was performed and the patient's functional status was evaluated. All patients with back pain were advised against the bed rest greater than 4 days and were advised to return to normal activities. Pain score assessment was noted and the treatment plan was reviewed with the patient. All current medications, both prescribed and OTC were reviewed and reconciled on the electronic medical record. Tobacco screening was accomplished and smoking cessation was advised when indicated. BMI was noted and diet/exercise [address] [address] PAIN MANAGEMENT CONSULTATION Name: AUDIE DE LA TORRE Room #: REG CLI Vishal#: [id number] Admission: 05/06/19 Attend Phys: Alessandro De La Torre DO Discharge: Date of : 41 Report #: [id number] modification was recommended for all patients following outside normal parameters. I reviewed with the patient today their responsibilities to safeguard prescription medications, reviewed their responsibility to utilize medications only as prescribed by the physician. They are to seek and receive pain medications only from 1 physician group ( [facility]). They are to use 1 pharmacy and keep the clinic informed if they change pharmacies. Their responsibilities include making followup visits in a timely fashion and to avoid abrupt discontinuation of medication usage. Their responsibilities further include bringing their medications (bottles from the pharmacy with residual pills) to the visit for possible confirmation of pill counts and the patient understands it is their responsibility to submit to random drug screens to ensure both that the medications prescribed are present, and that no other controlled substances are present. All prescriptions provided today were generated electronically. 3. The patient was provided prescription of methadone 10 mg dose 1 tab p.o. t.i.d. I have given the patient #90 tablets, releasing today and 4 weeks from today, 2 months' worth of medication. Prescriptions were provided to the patient via e-scribe and sent to her local pharmacy. 4. We will see the patient back in followup visit in 2 months for medication management, also discuss other treatment options that may be available. <ELECTRONICALLY SIGNED> By: Alessandro De La Torre DO 05/07/19 1152 1254 0012 Alessandro De La Torre DO /eduardo
== END ==
LOC: PAIN 11:13
DX: K90.9 Intestinal malabsorption, unspecified (principal); K91.1 Postgastric surgery syndromes; M81.0 Age-related osteoporosis without current pathological fracture; F11.20 Opioid dependence, uncomplicated; G89.29 Other chronic pain; Z88.0 Allergy status to penicillin; Z88.8 Allergy status to other drugs, medicaments and biological substances; Z79.84 Long term (current) use of oral hypoglycemic drugs; Z79.1 Long term (current) use of non-steroidal anti-inflammatories (NSAID); Z79.899 Other long term (current) drug therapy

== ENCOUNTER → 2019-07-02 | Outpatient (CLI) | payer OTHER, MEDICARE ==
--- NOTE | 2019-07-03 08:01 | HPC ---
[facility] [address] [place] [address] PAIN MANAGEMENT CONSULTATION Name: AUDIE DE LA TORRE Room #: REG [facility] M..#: [id number] Admission: 07/02/19 Attend Phys: Coco Potts Discharge: Date of : 41 Report #: [id number] THIS REPORT FOR: cc: JESICA VILLATORO DO Physician not on staff Coco Potts ~ CC: Alessandro De La Torre DO DATE OF SERVICE: 07/02/2019 This is a telemedicine appointment on this patient due to the coronavirus and her ill health. I spoke with her from 9:32 to 9:48 via the telephone for a telemedicine appointment. CHIEF COMPLAINT: Chronic abdominal pain, requiring opioid medications. HISTORY OF PRESENT ILLNESS: As you know, this is a very pleasant 79-year-old female who I was speaking with via the telephone today for her telemedicine appointment for medication refills for her methadone therapy. She states she continues to experience chronic abdominal pain that is well controlled with her methadone. Today, she is reporting a pain score of 5/10. Her pain is mostly located in her lower abdomen. It is a dull aching pain that is occasionally sharp. She states that drinking something cold or cold weather does aggravate her pain. She feels that the medication is very beneficial as well as heat and distraction. She denies any problems of side effects of constipation or confusion or daytime somnolence as a result of the medication. ALLERGIES: MORPHINE AND PENICILLIN. CURRENT LIST OF MEDICATIONS: Methadone 10 mg 3 times a day, atorvastatin, Lidoderm patch, colestipol, vitamin B12, vitamin D, multivitamin, losartan/hydrochlorothiazide, Prolia. PQRS: 1. She does have a history of osteoporosis and osteoarthritis in her hands and knees. Denies any rheumatoid arthritis. 2. Height, weight and vital signs were deferred today since it is a telemedicine appointment. 3. Pain score is 5/10. 4. Denies dizziness. Does need assistance for ambulation, using a rolling walker. The patient reports no falls since we have seen her last. 5. The patient denies any blood thinners, but does take medicine for hypertension. Her opioid therapy is greater than 6 weeks; therefore, an opioid signed contract is on the chart. Risk assessment tool is low. Functional assessment is 13 out of 70. 6. Recreational drug use, she denies. She is not a [place] [address] PAIN MANAGEMENT CONSULTATION Name: AUDIE DE LA TORRE CHUY Room #: REG OLGA Rodgers#: [id number] Admission: 07/02/19 Attend Phys: Coco Potts Discharge: Date of : 41 Report #: [id number] alcohol. According to the prescription monitoring system, the patient is filling appropriately for her medications. She is due to fill those today, filling them in a timely fashion. According to the CDC guidelines, her morphine mEq is 90 MME per day. There is a recent drug screen on the chart that is appropriate as well. PHYSICAL EXAMINATION: GENERAL: This is alert and orientated individual that we are doing a review of systems on due to a telemedicine appointment. She is answering all my questions appropriately, in complete sentences rating her pain score 5/10. ABDOMEN: The patient complains of tenderness in lower quadrants of her abdomen today. The patient reports ambulating with a rolling walker. ASSESSMENT: 1. Chronic abdominal pain. 2. Malabsorption syndrome. 3. Dumping syndrome. 4. History of osteoporosis with current treatments. 5. Complicated medical management using opioid medications. 6. Chronic intractable pain. PLAN: 1. We discussed treatment options with the patient today. The patient is hopeful that she will be able to come to a physical appointment for her next visit. She has been worried due to the coronavirus. Her does have lung cancer and he is not healthy either. They have only left the house, one time to go to the grocery store. Her family has been delivering most of their food for them and medications. 2. She feels that the methadone therapy is very beneficial and we will refill this medication today for her. Dr. Alessandro De La Torre will send electronically her methadone 10 mg, #90, for today and 4-week supply. 3. The patient will return hopefully to the clinic in 2 months and at that time, we will repeat a urine drug screen at that appointment. The patient is discussed on the telephone today with Dr. Alessandro De La Torre who collaborated the care. <ELECTRONICALLY SIGNED> By: Coco Potts 07/03/19 0801 [id number] Coco Potts /nt
== END ==
LOC: TELEPC 07:40 → PAIN 10:08 → TELEPC 11:08
DX: R10.9 Unspecified abdominal pain (principal); F11.20 Opioid dependence, uncomplicated; M81.0 Age-related osteoporosis without current pathological fracture; G89.29 Other chronic pain; K90.9 Intestinal malabsorption, unspecified; K91.1 Postgastric surgery syndromes; Z88.0 Allergy status to penicillin; Z88.5 Allergy status to narcotic agent; Z79.899 Other long term (current) drug therapy

== ENCOUNTER → 2019-08-26 | Outpatient (CLI) | payer OTHER, MEDICARE ==
[~2019-08-26] VITALS: Ht 152.4 cm; Wt 58.1 kg
[2019-08-26 10:26] VITALS: BP 158/96
--- NOTE | 2019-08-26 10:30 | NUR ---
Pain Clinic Assessment: 1. History of Osteoarthritis: OSTEOPOROSIS HANDS KNEES History of Rheumatoid Arthritis: NONE 2. Height: 5 ft. 0 in. 152.4 cm. Weight: 128.0 lb. oz. 58.060 kg. Patient's BMI: 25.0 3. Vital Signs: BP: 158/96 Pulse: 94 Resp: 18 Temp: 02 Sat: 95 ECG Mon: 4. Pain Intensity: 6 5. Fall Risk: Dizziness: N Needs help standing or walking: N Fallen in the last 3 months: N Fall risk comments: 6. Patient on Blood Thinner: None 7. History of Hypertension: Y 8. Opioid Therapy greater than 6 weeks: Y Opiate Contract Signed: 09/14/15 9. Risk Assessment Tool Provided: low-1 10. Functional Assessment Tool: 11. Recreational Drug Use: Never Drug Type: Tobacco Use: Never Smoker Tobacco Type: Amount or Packs/day: How Many Years: Alcohol Use: No Frequency: Quant:
--- NOTE | 2019-08-28 10:55 | HPC ---
[facility] [address] [place] [address] PAIN MANAGEMENT CONSULTATION Name: AUDIE DE LA TORRE Room #: REG [facility] M..#: [id number] Admission: 08/26/19 Attend Phys: Coco Potts Discharge: Date of : 41 Report #: [id number] THIS REPORT FOR: cc: JESICA VILLATORO DO Physician not on staff Coco Potts ~ CC: ART DE LA TORRE DO DATE OF SERVICE: 08/26/2019 CHIEF COMPLAINT: Chronic abdominal pain. HISTORY OF PRESENT ILLNESS: This is a very pleasant 79-year-old female who returns to the pain clinic today for a refill of her medications that she uses for her continued abdominal pain. She did recently have a flare the last few days, her pain score is slightly elevated today at 6/10 as well as her blood pressure. She does report that she has exacerbations caused by drinking something cold and then diarrhea. She said driving and sitting in the car does aggravate her as well. She is complaining of a dull aching pain in her abdomen that is generalized. She feels that the methadone as beneficial as well as heat. She does report that she is not having problems with constipation or diarrhea currently. She does though sometimes have issues. She states that aside from the recent flare, she had been doing quite well. The patient is considering having family over 09/06/2019 visit, though she is apprehensive about the COVID virus and having people around, but she states that she will keep her social distancing, she is wearing a mask today and does not leave her house very often per her report. ALLERGIES: PENICILLIN and AMLODIPINE. CURRENT LIST OF MEDICATIONS: Methadone 10 mg t.i.d., atorvastatin, lidocaine patch, colestipol, vitamin B12, vitamin D, Prolia, calcium and Hyzaar. PQRS: 1. She has a history of osteoporosis as well as osteoarthritis in her hands and knees. Denies any rheumatoid arthritis. 2. Height is 5 feet, weight is 128, BMI is 25, this is down 5 pounds since our last visit in May. 3. Vital signs: Blood pressure 158/96, pulse is 94, respirations 18, oxygen sat is 95%. 4. Pain score is 6/10. 5. Denies dizziness, does not need help walking or standing, has not fallen in the last 3 months. 6. The patient is not on any blood thinners, but does take medicine for hypertension. [address] [address] PAIN MANAGEMENT CONSULTATION Name: BRITTAUDIE CHUY Room #: REG CLI [facility].#: [id number] Admission: 08/26/19 Attend Phys: Coco Potts Discharge: Date of : 41 Report #: [id number] 7. Opiate therapy is greater than 6 weeks; therefore, an opioid signed contract is on the chart. Risk assessment tool is low. Functional assessment is . 8. Recreational drug use, she denies. She is not a smoker and does not drink alcohol. According to the CDC guidelines, her morphine mEq is 90 MME. She is filling in a timely fashion, due to fill this week. We will collect a urine specimen for a random drug screen on her as well today. PHYSICAL EXAMINATION: GENERAL: This is a well-developed, well-nourished, well-hydrated 79-year-old female who appears her stated age, placing her current pain score at 6/10. HEENT: Normocephalic, atraumatic. Pupils equal, round and reactive to light. She is wearing a mask. EXTREMITIES: No clubbing, no cyanosis, no edema. ABDOMEN: There is a palpable tenderness over the abdomen. No specific triggers or hepatosplenomegaly. No guarding, no rebound tenderness. ASSESSMENT: 1. Chronic abdominal pain. 2. Malabsorption syndrome. 3. Dumping syndrome. 4. Osteoporosis. 5. Chronic pain under terms of written opioid agreement. We reviewed the fact that opiate medications are being used to provide analgesia adequate to support activities of daily living, not attempting to achieve a specific pain score on the 0-10 Visual Analog Scale. The current opiate medications are providing sufficient analgesia to allow the patient to participate in activities of daily living. The patient is not exhibiting any aberrant behavior suggestive of drug diversion. The patient is not having any adverse reactions to medications. The patient is not suffering from daytime somnolence or mental acuity changes. The patient is managing opiate-induced constipation with appropriate gxzj-tpl-drrgfgx agents and dietary considerations. The patient was counseled on concern for caution with operating a motor vehicle while using opiate medications. A physical exam was performed and the patient's functional status was evaluated. All patients with back pain were advised against the bed rest greater than 4 days and were advised to return to normal activities. Pain score assessment was noted and the treatment plan was reviewed with the patient. All current medications, both prescribed and OTC were reviewed and reconciled on the electronic medical record. Tobacco screening was accomplished and smoking cessation was advised when indicated. BMI was noted and diet/exercise modification was recommended for all patients following outside normal parameters. [address] [address] PAIN MANAGEMENT CONSULTATION Name: AUDIE DE LA TORRE Room #: REG OLGA Rodgers#: [id number] Admission: 08/26/19 Attend Phys: Coco Potts Discharge: Date of : 41 Report #: [id number] I reviewed with the patient today their responsibilities to safeguard prescription medications, reviewed their responsibility to utilize medications only as prescribed by the physician. They are to seek and receive pain medications only from 1 physician group ( [facility]). They are to use 1 pharmacy and keep the clinic informed if they change pharmacies. Their responsibilities include making followup visits in a timely fashion and to avoid abrupt discontinuation of medication usage. Their responsibilities further include bringing their medications (bottles from the pharmacy with residual pills) to the visit for possible confirmation of pill counts and the patient understands it is their responsibility to submit to random drug screens to ensure both that the medications prescribed are present, and that no other controlled substances are present. All prescriptions provided today were generated electronically. PLAN: 1. We discussed treatment options with the patient today aside from a recent flare. The patient had been doing quite well. She has lost 5 pounds since we have last seen her and she attributes this to the flare that she has recently had, which she was not eating for several days. 2. We will have Dr. Art De La Torre send electronically her methadone 10 mg, #90, for today and 4-week release. She is due to fill later this week. These will be sent to her [facility]. 3. We will collect a random drug screen on this patient today since it had been greater than a year. The patient did take her medicines this morning. 4. The patient will follow up with us in 2 months. The patient is seen in collaboration with Dr. De La Torre. <ELECTRONICALLY SIGNED> By: Coco Potts 08/28/19 1055 [id number] Coco Potts /nt
== END ==
LOC: PAIN 06:51
PROVIDERS: ATTEND Clinical Nurse Specialist Adult Health
DX: G89.29 Other chronic pain (principal); R10.9 Unspecified abdominal pain; M81.0 Age-related osteoporosis without current pathological fracture; M17.0 Bilateral primary osteoarthritis of knee; M19.042 Primary osteoarthritis, left hand; M19.041 Primary osteoarthritis, right hand; K90.9 Intestinal malabsorption, unspecified; Z68.25 Body mass index [BMI] 25.0-25.9, adult; Z88.0 Allergy status to penicillin; Z88.8 Allergy status to other drugs, medicaments and biological substances; Z79.899 Other long term (current) drug therapy

== ENCOUNTER → 2019-10-21 | Outpatient (CLI) | payer OTHER, MEDICARE ==
[~2019-10-21] VITALS: Ht 152.4 cm; Wt 61.0 kg
[2019-10-21 10:30] VITALS: BP 117/94
--- NOTE | 2019-10-21 10:59 | NUR ---
Pain Clinic Assessment: 1. History of Osteoarthritis: OSTEOPOROSIS HANDS KNEES History of Rheumatoid Arthritis: NONE 2. Height: 5 ft. 0 in. 152.4 cm. Weight: 134.4 lb. oz. 60.963 kg. Patient's BMI: 26.2 3. Vital Signs: BP: 117/94 Pulse: 89 Resp: 16 Temp: 02 Sat: 99 ECG Mon: 4. Pain Intensity: 5 5. Fall Risk: Dizziness: N Needs help standing or walking: Y Fallen in the last 3 months: N Fall risk comments: 6. Patient on Blood Thinner: None 7. History of Hypertension: Y 8. Opioid Therapy greater than 6 weeks: Y Opiate Contract Signed: 09/14/15 9. Risk Assessment Tool Provided: low-1 10. Functional Assessment Tool: 11. Recreational Drug Use: Never Drug Type: Tobacco Use: Never Smoker Tobacco Type: Amount or Packs/day: How Many Years: Alcohol Use: No Frequency: Quant:
--- NOTE | 2019-10-22 11:17 | HPC ---
[facility] [address] [place] [address] PAIN MANAGEMENT CONSULTATION Name: AUDIE DE LA TORRE [id number] Admission: 10/21/19 Attend Phys: Coco Potts Discharge: Date of : 41 Report #: [id number] THIS REPORT FOR: cc: JESICA VILLATORO DO Physician not on staff Coco Potts ~ CC: Alessandro De La Torre DO DATE OF SERVICE: 10/21/2019 CHIEF COMPLAINT: Chronic abdominal pain. HISTORY OF PRESENT ILLNESS: This is a very pleasant 79-year-old female who returns to the pain clinic today for refill of her opioid medications that she uses to help treat her ongoing abdominal pain. She feels that this medicine helps her pain be very controlled. She denies any problems with daytime somnolence or constipation. In fact, she does suffer from diarrhea as a result of her abdominal pain and feels that the methadone helps keep her slightly more regular. Today, she is rating her pain score at 5/10 in her lower abdominal area. There is a dull aching pain drinking something cold or cold weather does aggravate her, medication as well as distraction and heat over her abdominal area are beneficial. ALLERGIES: AMLODIPINE, PENICILLIN. CURRENT LIST OF MEDICATIONS: Methadone t.i.d., atorvastatin, lidocaine patch, colestipol, vitamin B12, vitamin D, Prolia, calcium, and Hyzaar. PQRS: 1. She has known arthritic changes in her hands and knees. Denies any rheumatoid arthritis. Does have osteoporosis and does give Prolia for that. 2. Height is 5 feet, weight is 134, BMI is 26. Vital signs; blood pressure 117/94, pulse is 89, respirations 16, oxygen sat is 99%. Pain score is 5/10. Denies dizziness. Does need assistance with walking and uses a walker. Has not fallen in the last 3 months. The patient is not on any blood thinners, but does take medicine for hypertension. Her opioid therapy is greater than 6 weeks; therefore, an opioid signed contract is on the chart. Risk assessment is low. Functional assessment is . 3. Recreational drug use, she denies. She is not a smoker and does not drink alcohol. According to the prescription monitoring system, the patient is filling appropriately in a timely fashion. She is due to fill her medications this week. Her morphine mEq according to the CDC guidelines is 90. We did check a random drug screen on her at her last visit, which is appropriate for her medications. [address] [address] PAIN MANAGEMENT CONSULTATION Name: AUDIE DE LA TORRE [facility] [id number] Admission: 10/21/19 Attend Phys: Coco Potts Discharge: Date of : 41 Report #: [id number] PHYSICAL EXAMINATION: GENERAL: This is a well-developed, well-nourished, well-hydrated, kyphotic 79-year-old female who appears her stated age, placing her current pain score at 5/10. HEENT: Normocephalic and atraumatic. Pupils are equal, round and reactive to light. She is wearing a mask. ABDOMEN: There is no tenderness to palpation today in her upper and lower abdomen. Her bowel sounds appear normal. Does complain of diarrhea. ASSESSMENT: 1. Chronic abdominal pain. 2. Malabsorption syndrome. 3. Dumping syndrome. 4. History of osteoporosis, on Prolia therapy. 5. Complicated medical management, utilizing prescribed opioids. 6. Chronic intractable pain. We reviewed the fact that opiate medications are being used to provide analgesia adequate to support activities of daily living, not attempting to achieve a specific pain score on the 0-10 Visual Analog Scale. The current opiate medications are providing sufficient analgesia to allow the patient to participate in activities of daily living. The patient is not exhibiting any aberrant behavior suggestive of drug diversion. The patient is not having any adverse reactions to medications. The patient is not suffering from daytime somnolence or mental acuity changes. The patient is managing opiate-induced constipation with appropriate yjst-coo-nxfascv agents and dietary considerations. The patient was counseled on concern for caution with operating a motor vehicle while using opiate medications. A physical exam was performed and the patient's functional status was evaluated. All patients with back pain were advised against the bed rest greater than 4 days and were advised to return to normal activities. Pain score assessment was noted and the treatment plan was reviewed with the patient. All current medications, both prescribed and OTC were reviewed and reconciled on the electronic medical record. Tobacco screening was accomplished and smoking cessation was advised when indicated. BMI was noted and diet/exercise modification was recommended for all patients following outside normal parameters. I reviewed with the patient today their responsibilities to safeguard prescription medications, reviewed their responsibility to utilize medications only as prescribed by the physician. They are to seek and receive pain medications only from 1 physician group ([facility]). They are to use 1 pharmacy and keep the clinic informed if they change pharmacies. Their responsibilities include making followup visits in a timely fashion and to avoid [address] [address] PAIN MANAGEMENT CONSULTATION Name: AUDIE DE LA TORRE Room #: REG OLGA Rodgers#: [id number] Admission: 10/21/19 Attend Phys: Coco Potts Discharge: Date of : 41 Report #: [id number] abrupt discontinuation of medication usage. Their responsibilities further include bringing their medications (bottles from the pharmacy with residual pills) to the visit for possible confirmation of pill counts and the patient understands it is their responsibility to submit to random drug screens to ensure both that the medications prescribed are present, and that no other controlled substances are present. All prescriptions provided today were generated electronically. PLAN: 1. The patient returns in followup visit today stating no side effects of her methadone therapy. She finds that this is well controlled, but well tolerated by her and finds it very beneficial in reducing her pain. We will make no changes in her current methadone dose of 10 mg 3 times a day. I will have Dr. Alessandro De La Torre who is collaborating care with me today. Send 2 months of this medication to her [facility] electronically. 2. The patient will return every 2 months. I will see her at that time and then she will make a followup visit in March with Dr. Alessandro De La Torre. <ELECTRONICALLY SIGNED> By: Coco Potts 10/22/19 1117 [id number] Coco Potts /nt
== END ==
LOC: PAIN 06:53
PROVIDERS: ATTEND Clinical Nurse Specialist Adult Health
DX: Z76.0 Encounter for issue of repeat prescription (principal); K90.9 Intestinal malabsorption, unspecified; K91.1 Postgastric surgery syndromes; G89.4 Chronic pain syndrome; M81.0 Age-related osteoporosis without current pathological fracture; Z79.891 Long term (current) use of opiate analgesic; Z79.899 Other long term (current) drug therapy

== ENCOUNTER → 2019-12-23 | Outpatient (CLI) | payer OTHER, MEDICARE ==
[~2019-12-23] VITALS: Ht 152.4 cm; Wt 61.4 kg
[~2019-12-23] MED LIST changes: +CYSTEX TABLET1 EAC1 PO
[2019-12-23 09:50] VITALS: BP 161/69
--- NOTE | 2019-12-23 10:01 | NUR ---
Pain Clinic Assessment: 1. History of Osteoarthritis: OSTEOPOROSIS HANDS KNEES History of Rheumatoid Arthritis: NONE 2. Height: 5 ft. 0 in. 152.4 cm. Weight: 135.4 lb. oz. 61.417 kg. Patient's BMI: 26.4 3. Vital Signs: BP: 161/69 Pulse: 94 Resp: 18 Temp: 02 Sat: 97 ECG Mon: 4. Pain Intensity: 6 5. Fall Risk: Dizziness: N Needs help standing or walking: Y Fallen in the last 3 months: N Fall risk comments: 6. Patient on Blood Thinner: None 7. History of Hypertension: Y 8. Opioid Therapy greater than 6 weeks: Y Opiate Contract Signed: 09/14/15 9. Risk Assessment Tool Provided: low-1 10. Functional Assessment Tool: 11. Recreational Drug Use: Never Drug Type: Tobacco Use: Never Smoker Tobacco Type: Amount or Packs/day: How Many Years: Alcohol Use: No Frequency: Quant:
--- NOTE | 2019-12-24 14:37 | HPC ---
[facility] [address] [place] [address] PAIN MANAGEMENT CONSULTATION Name: AUDIE DE LA TORRE Room #: REG CL MYanet.#: [id number] Admission: 12/23/19 Attend Phys: Coco Potts Discharge: Date of : 41 Report #: [id number] CC: Coco DE LA TORRE DO Physician staff JESICA VILLATORO DATE OF SERVICE: 12/23/2019 CHIEF COMPLAINT: Chronic abdominal pain. HISTORY OF PRESENT ILLNESS: This is a very pleasant 79-year-old female who returns to the pain clinic today for refill of her medications. Today, she is reporting her pain score in her abdomen at a 6/10, stating it is a dull aching and occasional sharp pain. It is worse with eating certain foods, but she feels her medication as well as heat has been beneficial. She reports today she has started taking new tablets called Cystex to help with urinary issues. She feels like she was having pressure and pain in her lower abdominal region. She has started this about 2 weeks ago and feels that her pain has subsided; again rating her pain today a 6/10, but overall she feels like she is doing better. She denies problems with constipation more frequently. She does have diarrhea and does take colestipol as a result of that. Today, she would like refills of her methadone. ALLERGIES: PENICILLIN AND AMLODIPINE. MEDICATIONS: Cystex tablets 2 daily, methadone 10 mg t.i.d., atorvastatin, colestipol, vitamin B12, vitamin D, Prolia, Proepa, calcium and Hyzaar. PQRS: 1. She has known arthritic changes in her hands and knees. She denies rheumatoid arthritis, but does suffer from osteoporosis. 2. Height is 5 feet, weight is 135, BMI is 26. Vital signs 161/69, pulse is 94, respirations 18, oxygen sat is 97, pain score is 6/10. 3. Fall risk. Denies dizziness, does use a cane for ambulation, has not fallen in the last 3 months. The patient is not on any blood thinners, but does take medicine for hypertension. Opioid therapy is greater than 6 weeks; therefore, an opioid signed contract is on the chart. Risk assessment is low. Functional assessment is . 4. Recreational drug use, she denies. She is not a smoker and does not drink alcohol. According to the prescription monitoring system, the patient is filling appropriately for her medications, filling them in a timely fashion. She is due to fill those today. Her morphine mEq is 90 MME for the conversion of methadone that she takes. There is a urine drug screen on the chart that is appropriate for her medications. PHYSICAL EXAMINATION: GENERAL: This is alert and orientated, well-developed, well-nourished 79-year-old female who appears her stated age. She is slightly kyphotic, placing her current pain score at 6/10. HEENT: Normocephalic, atraumatic. Pupils equal, round and reactive to light. She is wearing glasses and a mask. ABDOMEN: She has tenderness in her abdomen that is generalized. ASSESSMENT: 1. Chronic abdominal pain. 2. Malabsorption syndrome. 3. Dumping syndrome. 4. History of osteoporosis, on Prolia. 5. Chronic intractable pain. 6. Chronic complicated medical management utilizing scheduled opioid medications. We reviewed the fact that opiate medications are being used to provide analgesia adequate to support activities of daily living, not attempting to achieve a specific pain score on the 0-10 Visual Analog Scale. The current opiate medications are providing sufficient analgesia to allow the patient to participate in activities of daily living. The patient is not exhibiting any aberrant behavior suggestive of drug diversion. The patient is not having any adverse reactions to medications. The patient is not suffering from daytime somnolence or mental acuity changes. The patient is managing opiate-induced constipation with appropriate [id number]-dvqklhw agents and dietary considerations. The patient was counseled on concern for caution with operating a motor vehicle while using opiate medications. PLAN: 1. We discussed treatment options with the patient today. The patient has started her new medicine for urinary pressure. She has found that it has been beneficial in decreasing some of her overall pain. I explained to her that it has a anti-inflammatory salicylate in her medication based on her overall feeling better. We did discuss trying to decrease her methadone slightly; encouraging the patient to take 10 mg in the morning, 5 midday and 10 at night to try this for the next month, but if it is not helpful, we will continue her on her previous dose of methadone. We will have Dr. Alessandro De La Torre send her 90 tablets for today and 4-week release. The patient instructed to try to taper her dose and bring her medications with her at her next visit and then we will possibly decrease her further, taking methadone b.i.d. If she is able to decrease to that level, then she will be able to come every 3 months instead of every 2. The patient is hopeful that she will be able to decrease her medications with limited side effects. 2. We did discuss her 's health slightly that she has been having some increased stress due to his chemotherapy and radiation not as effective. They are going to rescan him in the next month, but he has decided he will not continue any radiation therapy in the future. He decided he would rather have quality of life than to go through continued radiation treatments. The patient has been worried about him and does have some increased stress as a result of that. 3. The patient will return in 2 months and be talking to us via the telephone to keep us apprised of how she is doing decreasing her methadone. The patient is seen today in collaboration with Dr. Alessandro De La Torre. <ELECTRONICALLY SIGNED> By: Coco Potts 12/24/19 1437 [id number] Coco Potts /nt
== END ==
LOC: PAIN 06:52
PROVIDERS: ATTEND Clinical Nurse Specialist Adult Health
DX: K90.9 Intestinal malabsorption, unspecified (principal); G89.29 Other chronic pain; K91.1 Postgastric surgery syndromes; M81.0 Age-related osteoporosis without current pathological fracture; F11.20 Opioid dependence, uncomplicated; Z88.8 Allergy status to other drugs, medicaments and biological substances; Z79.899 Other long term (current) drug therapy

== ENCOUNTER → 2020-02-17 | Outpatient (CLI) | payer OTHER, MEDICARE ==
[~2020-02-17] VITALS: Ht 152.4 cm; Wt 62.1 kg
[2020-02-17 10:21] VITALS: BP 133/72
--- NOTE | 2020-02-17 10:27 | NUR ---
Pain Clinic Assessment: 1. History of Osteoarthritis: OSTEOPOROSIS HANDS KNEES History of Rheumatoid Arthritis: NONE 2. Height: 5 ft. 0 in. 152.4 cm. Weight: 136.8 lb. oz. 62.052 kg. Patient's BMI: 26.7 3. Vital Signs: BP: 133/72 Pulse: 89 Resp: 16 Temp: 02 Sat: 98 ECG Mon: 4. Pain Intensity: 6 5. Fall Risk: Dizziness: N Needs help standing or walking: Y Fallen in the last 3 months: N Fall risk comments: 6. Patient on Blood Thinner: None 7. History of Hypertension: Y 8. Opioid Therapy greater than 6 weeks: Y Opiate Contract Signed: 09/14/15 9. Risk Assessment Tool Provided: low-1 10. Functional Assessment Tool: 11. Recreational Drug Use: Never Drug Type: Tobacco Use: Never Smoker Tobacco Type: Amount or Packs/day: How Many Years: Alcohol Use: No Frequency: Quant:
--- NOTE | 2020-02-17 14:28 | HPC ---
[facility] [address] [place] [address] PAIN MANAGEMENT CONSULTATION Name: AUDIE DE LA TORRE Room #: REG CL M..#: [id number] Admission: 02/17/20 Attend Phys: Coco Potts Discharge: Date of : 41 Report #: [id number] THIS REPORT FOR: cc: JESICA VILLATORO DO Physician not on staff Coco Potts ~ DATE OF SERVICE: 02/17/2020 CHIEF COMPLAINT: Chronic abdominal pain. HISTORY OF PRESENT ILLNESS: This is a very pleasant 79-year-old who returns to the pain clinic today for followup visit for her medications. Today, she is reporting that her pain is 6/10 in her abdominal area, but does believe that the methadone is beneficial in helping reduce her pain. She reports it is a dull aching sensation that is worse with eating certain foods or having diarrhea. She believes the methadone as well as heating pads to her abdominal area are beneficial and would like to continue her current regimen. She does not suffer from constipation or daytime somnolence as a result of these medicines. She does keep them safeguarded at all times at home. ALLERGIES: PENICILLIN AND AMLODIPINE. CURRENT LIST OF MEDICATIONS: Methadone 10 mg every 8 hours, Lipitor, colestipol, vitamin D, vitamin B12, Prolia, Proepa, calcium, and Hyzaar. PQRS: 1. She does have arthritic changes in her hands and knees. Denies any rheumatoid arthritis, but does take medicines for osteoporosis. 2. Height is 5 feet, weight is 136, BMI is 26. 3. Vital signs; blood pressure 133/72, pulse is 89, respirations 16, oxygen sat is 98%. 4. Pain score 6/10. 5. Denies dizziness. Does need assistance with ambulation and has not fallen in the last 3 months. 6. The patient is not on any blood thinners, but does take medicine for hypertension. Opioid therapy is greater than 6 weeks; therefore, an opioid signed contract is on the chart. Risk assessment is low. Functional assessment is . 7. Recreational drug use, she denies. She is not a smoker and does not drink alcohol. According to the prescription monitoring system, she is filling appropriately. Her morphine milliequivalent is 90 and she is seen every 2 months in our clinic. There is a recent drug screen on her chart that was appropriate for her medications. [address] [address] PAIN MANAGEMENT CONSULTATION Name: AUDIE DE LA TORRE CHUY Room #: REG OLGA Rodgers#: [id number] Admission: 02/17/20 Attend Phys: Coco Potts Discharge: Date of : 41 Report #: [id number] PHYSICAL EXAMINATION: GENERAL: This is alert and orientated: Pleasant, kyphotic, well-developed, well-nourished 79-year-old female who appears her stated age, placing her current pain score at 6/10 today. HEENT: Normocephalic, atraumatic. Extraocular eye muscles are intact. She is wearing a mask. ABDOMEN: Generalized discomfort and tenderness in her abdomen and upper quadrants. We reviewed the fact that opiate medications are being used to provide analgesia adequate to support activities of daily living, not attempting to achieve a specific pain score on the 0-10 Visual Analog Scale. The current opiate medications are providing sufficient analgesia to allow the patient to participate in activities of daily living. The patient is not exhibiting any aberrant behavior suggestive of drug diversion. The patient is not having any adverse reactions to medications. The patient is not suffering from daytime somnolence or mental acuity changes. The patient is managing opiate-induced constipation with appropriate knzt-qzf-[id number] agents and dietary considerations. The patient was counseled on concern for caution with operating a motor vehicle while using opiate medications. A physical exam was performed and the patient's functional status was evaluated. All patients with back pain were advised against the bed rest greater than 4 days and were advised to return to normal activities. Pain score assessment was noted and the treatment plan was reviewed with the patient. All current medications, both prescribed and OTC were reviewed and reconciled on the electronic medical record. Tobacco screening was accomplished and smoking cessation was advised when indicated. BMI was noted and diet/exercise modification was recommended for all patients following outside normal parameters. I reviewed with the patient today their responsibilities to safeguard prescription medications, reviewed their responsibility to utilize medications only as prescribed by the physician. They are to seek and receive pain medications only from 1 physician group ( [facility]). They are to use 1 pharmacy and keep the clinic informed if they change pharmacies. Their responsibilities include making followup visits in a timely fashion and to avoid abrupt discontinuation of medication usage. Their responsibilities further include bringing their medications (bottles from the pharmacy with residual pills) to the visit for possible confirmation of pill counts and the patient understands it is their responsibility to submit to random drug screens to ensure both that the medications prescribed are present, and that no other controlled substances are present. All prescriptions provided today were generated electronically. [facility] [address] [place] [address] PAIN MANAGEMENT CONSULTATION Name: AUDIE DE LA TORRE Room #: REG CLI Kimberli.#: [id number] Admission: 02/17/20 Attend Phys: Coco Potts Discharge: Date of : 41 Report #: [id number] PLAN: 1. We discussed treatment options with the patient today. The patient finds her methadone beneficial with very minimal side effects of constipation or daytime somnolence, would like to continue this medicine 3 times a day. We will have Dr. Alessandro De La Torre send this electronically for #90 tablets for today and 4-week supply. 2. We did discuss the COVID vaccine as well as the flu vaccination. The patient states she is going to try and have the flu vaccination within the next week and then hopefully have the COVID vaccine before our next visit if it is available to the general population for elderly living at home prior to her return. She is unsure if her should have the have COVID vaccine. I encouraged her to have him talk to his oncologist regarding that. 3. The patient is seen today in collaboration with Dr. Alessandro De La Torre. She will return in 2 months. <ELECTRONICALLY SIGNED> By: Coco Potts 02/17/20 1428 1230 1304 Coco Potts /eduardo
== END ==
LOC: PAIN 06:47
PROVIDERS: ATTEND Clinical Nurse Specialist Adult Health
DX: Z76.0 Encounter for issue of repeat prescription (principal); R10.9 Unspecified abdominal pain; G89.29 Other chronic pain; Z88.0 Allergy status to penicillin; Z88.1 Allergy status to other antibiotic agents; Z79.899 Other long term (current) drug therapy

== ENCOUNTER → 2020-04-27 | Outpatient (CLI) | payer OTHER, MEDICARE ==
[~2020-04-27] VITALS: Ht 154.9 cm; Wt 60.8 kg
[2020-04-27 12:35] VITALS: BP 148/84
--- NOTE | 2020-04-27 12:40 | NUR ---
Pain Clinic Assessment: 1. History of Osteoarthritis: OSTEOPOROSIS HANDS KNEES History of Rheumatoid Arthritis: NONE 2. Height: 5 ft. 1 in. 154.9 cm. Weight: 134.0 lb. oz. 60.782 kg. Patient's BMI: 25.3 3. Vital Signs: BP: 148/84 Pulse: 106 Resp: 18 Temp: 02 Sat: 98 ECG Mon: 4. Pain Intensity: 8 5. Fall Risk: Dizziness: N Needs help standing or walking: N Fallen in the last 3 months: N Fall risk comments: 6. Patient on Blood Thinner: None 7. History of Hypertension: Y 8. Opioid Therapy greater than 6 weeks: Y Opiate Contract Signed: 09/14/15 9. Risk Assessment Tool Provided: low-1 10. Functional Assessment Tool: 11. Recreational Drug Use: Never Drug Type: Tobacco Use: Never Smoker Tobacco Type: Amount or Packs/day: How Many Years: Alcohol Use: No Frequency: Quant:
--- NOTE | 2020-04-28 14:14 | HPC ---
[facility] [place] [address] PAIN MANAGEMENT CONSULTATION Name: AUDIE DE LA TORRE Room #: REG CL M..#: [id number] Admission: 04/27/20 Attend Phys: Alessandro De La Torre DO Discharge: Date of : 41 Report #: [id number] THIS REPORT FOR: cc: JESICA TAPIA DO Physician not on staff Alessandro De La Torre DO ~ DATE OF SERVICE: 04/27/2020 REFERRING PHYSICIAN: Jesica Tapia DO CHIEF COMPLAINT: Chronic abdominal pain, new onset low back pain, right buttock area. HISTORY OF PRESENT ILLNESS: As you know, the patient is a very pleasant 80-year-old female who has returned today in followup visit with continued abdominal pain, requesting refill of her methadone therapy for which she takes the methadone 3 times a day with good benefit. The patient suffers from chronic abdominal pain secondary to multiple surgeries. The patient was started on methadone prior to our visitation with the patient. She was continued on the medication, as she was seeing benefit and no side effects. She has been very appropriate with this therapy. She returns today stating that she has been recently diagnosed with compression fractures at L1, L2, and L3 that occurred spontaneously when trying to get up from a seat. X-ray imaging was obtained, which showed that they were fractures, but do not provide any suggestion of timing of those fractures whether they are acute, subacute or chronic. The patient began to experience right buttock pain somewhere over the SI joint, specifically on the right side, negative pain in the mid back consistent with vertebral compression fractures. She is currently wearing a TLSO brace without improvement. She has come back to our clinic to discuss medication management and her concerns about ongoing back issues. ALLERGIES: PENICILLIN, AMLODIPINE. CURRENT MEDICATIONS: Methadone 10 mg 3 times a day, Lipitor 40 mg per day, Cystex 2 tabs once a day, Lipitor 20 mg per day, Lidoderm patch apply topically p.r.n., colestipol p.r.n., vitamin B12 injections once a month, vitamin D 50,000 units once a week, Prolia 60 mg subcutaneous, ProEPA takes 4 tabs in the morning, losartan/hydrochlorothiazide 100/25 mg once a day. SOCIAL HISTORY: The patient denies tobacco, alcohol, IV, or illicit drug use. She is retired, retired years ago, accompanied by her present in the room today. IMAGING: X-ray of the lumbar spine obtained 04/09/2020 shows mild scoliotic curvature with convexity to the left. There are mild compression fracture deformities involving the superior endplates of L1, L2, and L3[place] [address] PAIN MANAGEMENT CONSULTATION Name: AUDIE DE LA TORRE Room #: REG CLI Vishal#: [id number] Admission: 04/27/20 Attend Phys: Alessandro De La Torre DO Discharge: Date of : 41 Report #: [id number] visible. No osseous destruction process visible. PQRS: The patient has known arthritic changes of the bilateral hands and knees. Denies rheumatoid arthritis. She is not a fall risk, has not had a fall in last 3 months. She is placing pain at 8/10. She is not on blood thinners, but is treated for hypertension. She is on chronic opioids and has a low opioid addiction potential based on our assessment tool. Pain impact /, mild interference of daily activities secondary to pain. PHYSICAL EXAMINATION: VITAL SIGNS: Blood pressure 148/84, pulse is 106, respiratory rate 18 and unlabored. The patient is 98% on room air. Height 5 feet 1 inch tall, weight 134 pounds, BMI calculated 25.3. GENERAL: Well-developed, well-nourished, well-hydrated, 80-year-old female. She appears in stated age, placing pain today at around 8/10. HEENT: Normocephalic, atraumatic. Pupils are round and responsive. Speech is fluent. She is wearing a mask in compliance with COVID-19 regulations. EXTREMITIES: Show no clubbing, no cyanosis, no edema. MUSCULOSKELETAL: The patient is wearing a TLSO bracing system, but it is ill-fitting. She has palpatory tenderness over the SI joint on the right, negative left. There may be a contribution of the facet joint at L5-S1 as well as causing some sources of pain as these typically are seen together. Seated straight leg raising negative. Supine straight leg raising negative. There is no palpatory tenderness over the upper lumbar or lower thoracic area. There is no ecchymosis. No skin color changes. ASSESSMENT: 1. Chronic abdominal pain. 2. Low back pain. 3. Vertebral compression fractures at L1, L2, and L3, found on x-ray imaging. 4. Chronic intractable pain. PLAN: 1. The patient returns today in followup visit, specifically for refill of medications. She feels the medications for chronic abdominal pain are working well. She is taking methadone 10 mg 3 times a day with good benefit. She is denying side effects of sleepiness, disorientation, confusion, mental slowing, or constipation with their use. We have reviewed the patient's PDMP. There is no concerning entries that would concern us in regards to inappropriate behavior with the medications. She has been on time and has received appropriate medication treatment. She wishes to continue therapy, as she is finding good benefit. She is provided a prescription of methadone 10 mg dose 1 tab p.o. t.i.d., #90 tablets, releasing today and 4 weeks from today, 2 months' worth of medication. Both prescriptions were sent via e-scribe to local pharmacy. 2. The patient and I had a very long discussion about the vertebral compression fractures noted on x-ray imaging. X-ray imaging, as you are aware, cannot [address] [address] PAIN MANAGEMENT CONSULTATION Name: AUDIE DE LA TORRE Room #: REG CLMonse Rodgers#: [id number] Admission: 04/27/20 Attend Phys: Alessandro De La Torre DO Discharge: Date of : 41 Report #: [id number] provide us information whether or not these are acute fractures or they are chronic fractures. She is severely kyphotic woman and likely has had fractures in this area for an extended period of time. She has no palpatory tenderness over the lumbar spine in this area. She is also experiencing no pain upon standing and seated position, which is typical for vertebral compression fractures, though the only way to determine if these are acute is having the patient undergo MRI imaging. We will defer the primary team to discuss this with the patient. If they are concerned about the compression fractures and they wish to look towards interventional treatments, we would recommend either vertebral augmentation or adjustments in the TLSO bracing to a [place] bracing system. The patient will discuss with her primary care physician the possibility of undergoing MRI of the lumbar spine to determine whether or not these fractures are chronic or are acute in nature. Once the patient has completed this MRI, I have advised the patient to contact our clinic. We will look at the results if at all possible and we can advise her whether or not interventional treatments would be recommended versus chronic fractures that require no treatment. She will contact our clinic once the MRI is completed. 3. We did discuss with the patient that if her symptoms continue to be present in the area over the SI joint, we will be more than willing to see the patient back in followup visit to undergo right sacroiliac joint injection under fluoroscopic guidance, which is consistent with her pain distribution at present. The patient wishes to evaluate the lumbar spine before moving on with any type of an injection, and I agree that you do not want to establish a steroid exposure in the patient that may have vertebral compression fractures as this reduces the patient's ability to heal more rapidly. If the compression fractures are noted to be chronic, I will be certainly willing to provide the patient an SI joint injection to address her current symptoms. 4. We plan to see the patient back in followup visit in 2 months for medication management. We established that appointment today, but if she does wish to return to undergo an SI joint injection, we will make ourselves available. <ELECTRONICALLY SIGNED> By: Alessandro De La Torre DO 04/28/20 1414 1203 1306 Alessandro De La Torre DO /nt
== END ==
LOC: PAIN 04-14 08:58
PROVIDERS: ATTEND Anesthesiology Pain Medicine
DX: M48.56XA Collapsed vertebra, not elsewhere classified, lumbar region, initial encounter for fracture (principal); G89.29 Other chronic pain; R10.2 Pelvic and perineal pain; Z88.8 Allergy status to other drugs, medicaments and biological substances; Z79.899 Other long term (current) drug therapy

== ENCOUNTER → 2020-06-23 | Outpatient (CLI) | payer OTHER, MEDICARE ==
[~2020-06-23] VITALS: Ht 154.9 cm; Wt 60.5 kg
[2020-06-23 09:03] VITALS: BP 124/81
--- NOTE | 2020-06-23 09:12 | NUR ---
Pain Clinic Assessment: 1. History of Osteoarthritis: OSTEOPOROSIS HANDS KNEES History of Rheumatoid Arthritis: NONE 2. Height: 5 ft. 1 in. 154.9 cm. Weight: 133.4 lb. oz. 60.510 kg. Patient's BMI: 25.2 3. Vital Signs: BP: 124/81 Pulse: 101 Resp: 16 Temp: 02 Sat: 100 ECG Mon: 4. Pain Intensity: 6 5. Fall Risk: Dizziness: N Needs help standing or walking: Y Fallen in the last 3 months: N Fall risk comments: 6. Patient on Blood Thinner: None 7. History of Hypertension: Y 8. Opioid Therapy greater than 6 weeks: Y Opiate Contract Signed: 09/14/15 9. Risk Assessment Tool Provided: low-1 10. Functional Assessment Tool: 11. Recreational Drug Use: Never Drug Type: Tobacco Use: Never Smoker Tobacco Type: Amount or Packs/day: How Many Years: Alcohol Use: No Frequency: Quant:
--- NOTE | 2020-07-06 11:26 | HPC ---
[facility] [place] [address] PAIN MANAGEMENT CONSULTATION Name: AUDIE DE LA TORRE [id number] Admission: 06/23/20 Attend Phys: Alessandro De La Torre DO Discharge: Date of : 42 Report #: [id number] THIS REPORT FOR: cc: JESICA TAPIA DO Physician not on staff Alessandro De La Torre DO ~ DOC #: [id number] cc: DO Alessandro Moreno DO DATE OF SERVICE: 06/23/2020 REFERRING PHYSICIAN: Jesica Tapia DO CHIEF COMPLAINT: Chronic abdominal pain, chronic low back pain, right buttock and posterolateral thigh pain. HISTORY OF PRESENT ILLNESS: As you know, the patient is a very pleasant 80-year-old female returning in followup visit for medication management. She was placing pain score around 6/10. She states the combination of medication along with the TLSO bracing for her vertebral compression fractures have been working well, though she is now experiencing what appears to be some signs and symptoms of lumbar radiculopathy. She is experiencing mainly symptoms that began in the low back, radiates down the leg. At this point, the patient is pleased with her treatment options and wishes no changes. She describes pain today as dull, aching and sharp, exacerbated with walking and bending, improves with medications, back brace and heat. She returns today for refill of medications and to discuss the fit of her TLSO bracing system and to discuss ongoing leg pain that is believed to be due to lumbar radiculopathy. ALLERGIES: PENICILLIN AND AMLODIPINE. CURRENT MEDICATIONS: Methadone 10 mg t.i.d., Lipitor 40 mg once a day, Cystex 2 tabs once a day, Lipitor 20 mg per day, Lidoderm patch applied topically q. 12 hours, colestipol p.r.n., vitamin B12 injections per month, vitamin D 50,000 units per week, Prolia 60 mg subcutaneous, ProEPA 4 tabs in the morning, losartan/hydrochlorothiazide 100/25 mg once a day. SOCIAL HISTORY: The patient denies tobacco, alcohol or IV or illicit drug use. She is retired, retired years ago, accompanied by her present in room today. IMAGING: No new imaging available. PQRS: The patient has known arthritic changes of the bilateral hands, bilateral knees and lumbar spine. No rheumatoid arthritis. She is placing current pain score 6/10. She is a fall risk, but has not had fallen in the last [address] [address] PAIN MANAGEMENT CONSULTATION Name: AUDIE DE LA TORRE Room #: REG CLI Davis.#: [id number] Admission: 06/23/20 Attend Phys: Alessandro De La Torre DO Discharge: Date of : 41 Report #: [id number] She is utilizing a roller walker for ambulation. She is not on blood thinners, but has history of hypertension. She is on chronic opioids as a low opiate addiction potential based on assessment tool. Pain impact 13/, mild interference of daily activities secondary to pain. PHYSICAL EXAMINATION: VITAL SIGNS: Blood pressure 124/81, pulse 101, respiratory rate 16 and unlabored. The patient is 100% on room air. Height 5 foot 1 inch tall, weight 133.4 pounds, BMI calculated 25.2. GENERAL: Well-developed, well-nourished, well-hydrated kyphotic 80-year-old female, appearing her stated age. Pain is rated today 6/10. HEENT: Normocephalic, atraumatic. Pupils are round and responsive. The patient's speech is normal. She is appropriate during discussions. She is wearing a mask in compliance with COVID-19 regulations. EXTREMITIES: Show no clubbing, no cyanosis. No appreciable edema. MUSCULOSKELETAL: The patient remains in a TLSO bracing system. It is once again ill fitted. I have adjusted the device and showed her how to utilize it more effectively, when to tighten and when not to tighten and when to wear and when not to wear. This should improve symptoms. There is contribution of facet arthropathy pain to accentuate it with movement. Seated straight leg raising negative. Supine straight leg raising negative. ASSESSMENT: 1. Chronic abdominal pain. 2. Chronic low back pain. 3. 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 4. Chronic intractable pain. PLAN: 1. The patient returns today in followup visit where we have discussed at length the use of opioid medications for pain control. She feels comfortable with the use of the current therapy and wishes no changes. She feels that the medication is working beneficially. She has requested refills to be provided today for the next 2 months. She is denying side effects of sleepiness, disorientation, confusion, mental slowing or constipation with their use. 2. In regards to the patient's TLSO bracing system, we have made adjustments in that bracing system in hopes of better improvement and fit. She will keep the device adjusted more appropriately, which will provide protection for her back. She will be following up with the physician for the TLSO bracing system on an as needed basis. 3. See the patient back for followup visit in 2 months. We are hopeful the patient will continue to see improvement in symptoms with her baseline abdominal pain. We reviewed the fact that opiate medications are being used to provide analgesia adequate to support activities of daily living, not attempting to achieve a [facility] [address] [place] [address] PAIN MANAGEMENT CONSULTATION Name: AUDIE DE LA TORRE Room #: REG [facility].#: [id number] Admission: 06/23/20 Attend Phys: Alessandro De La Torre DO Discharge: Date of : 41 Report #: [id number] specific pain score on the 0-10 Visual Analog Scale. The current opiate medications are providing sufficient analgesia to allow the patient to participate in activities of daily living. The patient is not exhibiting any aberrant behavior suggestive of drug diversion. The patient is not having any adverse reactions to medications. The patient is not suffering from daytime somnolence or mental acuity changes. The patient is managing opiate-induced constipation with appropriate [id number] agents and dietary considerations. The patient was counseled on concern for caution with operating a motor vehicle while using opiate medications. A physical exam was performed and the patient's functional status was evaluated. All patients with back pain were advised against the bed rest greater than 4 days and were advised to return to normal activities. Pain score assessment was noted and the treatment plan was reviewed with the patient. All current medications, both prescribed and OTC were reviewed and reconciled on the electronic medical record. Tobacco screening was accomplished and smoking cessation was advised when indicated. BMI was noted and diet/exercise modification was recommended for all patients following outside normal parameters. I reviewed with the patient today their responsibilities to safeguard prescription medications, reviewed their responsibility to utilize medications only as prescribed by the physician. They are to seek and receive pain medications only from 1 physician group ( [facility]). They are to use 1 pharmacy and keep the clinic informed if they change pharmacies. Their responsibilities include making followup visits in a timely fashion and to avoid abrupt discontinuation of medication usage. Their responsibilities further include bringing their medications (bottles from the pharmacy with residual pills) to the visit for possible confirmation of pill counts and the patient understands it is their responsibility to submit to random drug screens to ensure both that the medications prescribed are present, and that no other controlled substances are present. All prescriptions provided today were generated electronically. 4. The patient was provided a prescription of methadone 10 mg dose 1 tab p.o. t.i.d. I have given the patient #90 tablets to be released today and 4 weeks from today, 2 months' worth of medication. Both prescriptions are sent via e-scribe to local pharmacy. 5. We will see the patient back for followup visit in 2 months for medication management. We are hopeful the patient will continue to see good benefit with the medication therapy. I will see her back in followup visit. DO ARABELLA Ro/JC/[place] [address] PAIN MANAGEMENT CONSULTATION Name: BRITTAUDIE CHUY Room #: REG CLI Vishal#: [id number] Admission: 06/23/20 Attend Phys: Alessandro De La Torre DO Discharge: Date of : 41 Report #: [id number] <ELECTRONICALLY SIGNED> By: Alessandro De La Torre DO 07/06/20 1126 [id number] Alessandro De La Torre DO /nt
== END ==
LOC: PAIN 06-22 07:43
PROVIDERS: ATTEND Anesthesiology Pain Medicine
DX: R10.9 Unspecified abdominal pain (principal); M54.5 Low back pain; G89.29 Other chronic pain; Z79.899 Other long term (current) drug therapy; Z88.0 Allergy status to penicillin; Z88.1 Allergy status to other antibiotic agents

== ENCOUNTER → 2020-08-17 | Outpatient (CLI) | payer OTHER, MEDICARE ==
[~2020-08-17] VITALS: Ht 154.9 cm; Wt 60.1 kg
[~2020-08-17] MED LIST changes: +DETROL LA2 MG PO; +NAPROXEN SODIU220 M2 PO; +NASACORT10.8 ML NARES; -ORTHO-TABS1 EACH PO; +cholecalciferol PO
[2020-08-17 11:10] VITALS: BP 141/74
--- NOTE | 2020-08-17 11:11 | NUR ---
Pain Clinic Assessment: 1. History of Osteoarthritis: OSTEOPOROSIS HANDS KNEES History of Rheumatoid Arthritis: NONE 2. Height: 5 ft. 1 in. 154.9 cm. Weight: 132.4 lb. oz. 60.056 kg. Patient's BMI: 25.0 3. Vital Signs: BP: 141/74 Pulse: 107 Resp: 16 Temp: 02 Sat: 98 ECG Mon: 4. Pain Intensity: 6 5. Fall Risk: Dizziness: N Needs help standing or walking: Y Fallen in the last 3 months: N Fall risk comments: 6. Patient on Blood Thinner: None 7. History of Hypertension: Y 8. Opioid Therapy greater than 6 weeks: Y Opiate Contract Signed: 09/14/15 9. Risk Assessment Tool Provided: low-1 10. Functional Assessment Tool: 11. Recreational Drug Use: Never Drug Type: Tobacco Use: Never Smoker Tobacco Type: Amount or Packs/day: How Many Years: Alcohol Use: No Frequency: Quant:
--- NOTE | 2020-08-18 08:44 | HPC ---
[facility] [address] [address] PAIN MANAGEMENT CONSULTATION Name: AUDIE DE LA TORRE Room #: REG [facility] M.Yoshi.#: [id number] Admission: 08/17/20 Attend Phys: Coco Potts Discharge: Date of : 41 Report #: [id number] THIS REPORT FOR: cc: JESICA VILLATORO DO Physician not on staff Coco Potts ~ DOC #: [id number] cc: DO Coco Ro NP DATE OF SERVICE: 08/17/2020 CHIEF COMPLAINT: Chronic abdominal pain, chronic low back pain. HISTORY OF PRESENT ILLNESS: As you know, this is a very pleasant 80-year-old female who returns to the pain clinic today for her ongoing pain medication. She has been taking this chronically for years for her abdominal pain, but most recently, it has been beneficial in helping her low back pain as well due to compression fracture. Today, she reports her pain score is 6/10. She finds that utilizing the methadone as well as wearing a brace that Dr. De La Torre prescribed occasionally does help her low back pain. She describes it as a dull aching sensation that is sharp when she has diarrhea attacks. Otherwise, walking and bending does aggravate her back pain. Overall, she believes she is on a good regimen, though does have questions as she would like to decrease her methadone how to go about that. The patient also reports that she has a new primary doctor, he is working her up for her anemia. She has recently had an iron infusion and started B12 and feels like she does have more energy. She is also scheduled to have an echocardiogram by her cardiovascular doctor within the next few weeks. She will let us know if she has any further adjustments in her medications. ALLERGIES: PENICILLIN AND AMLODIPINE. CURRENT LIST OF MEDICATIONS: Nasacort, Detrol, naproxen, methadone, lidocaine, colestipol, vitamin B12, vitamin D, Prolia, and Hyzaar. PQRS: 1. She has osteoporosis and osteoarthritic changes in her hands and knees. Denies any rheumatoid arthritis. 2. Height is 5 feet 1 inches, weight is 132. BMI is 25. 3. Vital signs; blood pressure 141/74, pulse is 107, respirations 16, oxygen sat is 98%. 4. Pain score 6/10. 5. Denies dizziness. Does use a walker for ambulation and has not fallen in the last 3 months. 6. The patient is not on any blood thinners, but does take medication for [address] [address] PAIN MANAGEMENT CONSULTATION Name: AUDIE DE LA TORRE Room #: REG CLI ..#: [id number] Admission: 08/17/20 Attend Phys: Coco Potts Discharge: Date of : 41 Report #: [id number] hypertension. 7. Opioid therapy is greater than 6 weeks; therefore, an opioid signed contract is on the chart. 8. Risk assessment is low. Functional assessment is . 9. Recreational drug use, she denies. She is not a smoker and does not drink alcohol. According to the prescription monitoring system, the patient is filling appropriately with her methadone. Her morphine mEq is 90 MME according to the CDC guidelines. PHYSICAL EXAMINATION: GENERAL: This is alert and orientated, well-developed, well-nourished kyphotic 80-year-old female who appears her stated age, rating her pain score today at 6/10. HEENT: Normocephalic and atraumatic. Extraocular eye muscles are intact. Mucous membranes are moist. She is wearing a mask. EXTREMITIES: No clubbing, no cyanosis, no edema. MUSCULOSKELETAL: She has tenderness in her thoracic and lumbar spine that increases with bending range of motion. Seated straight leg raising is negative. Pain in her upper quadrants of her abdomen. Lower extremity strength is diminished due to deconditioning and utilizing a walker at all times. IMPRESSION: 1. Chronic abdominal pain. 2. Chronic low back pain. 3. 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 4. Complex medical management utilizing scheduled medications. PLAN: 1. We discussed treatment options with the patient today. The patient does find the methadone beneficial in helping reduce her abdominal pain and finds it beneficial helping her low back pain, though she is interested in how she will go back about weaning the medication if she chooses to. We discussed dropping half a tablet her least pain statistical assistant of day for 1-2 months and then decreasing another half a tablet until she is down to 2 tablets a day. The patient may attempt to try this, but we will continue her on her current methadone dose 10 mg #[address] Alessandro De La Torre for today and four week supply. 2. I encouraged the patient to wear her TLSO brace when she is more active to help decrease her pain in her lower back, though not to wear at all times as it decreases her muscle core strengthening. Time spent with the patient in consultation, reviewing pertinent imaging, reviewing recent studies and clinical notes and physician reports, physical examination and correlation of physical findings and medical documentation to [address] [address] PAIN MANAGEMENT CONSULTATION Name: AUDIE DE LA TORRE Room #: REG OLGA Rodgers#: [id number] Admission: 08/17/20 Attend Phys: Coco Potts Discharge: Date of : 42 Report #: [id number] determine possible treatment options 15 minutes. Time spent in preparation for appointment, reviewing prescription monitoring reports, reviewing previous records and proposed treatment options, reviewing current medications 5 minutes. Time spent preparing and sending electronic prescriptions with collaborating physician, Dr. Alessandro De La Torre and documentation of visit and plan of treatment 5 minutes. Total time spent 25 minutes. HEATH Alvarado/ALBA <ELECTRONICALLY SIGNED> By: Coco Potts 08/18/20 0844 1151 2140 Coco Potts /nt
== END ==
LOC: PAIN 07:00
PROVIDERS: ATTEND Clinical Nurse Specialist Adult Health
DX: M81.0 Age-related osteoporosis without current pathological fracture (principal); Z79.899 Other long term (current) drug therapy; Z79.891 Long term (current) use of opiate analgesic; Z88.0 Allergy status to penicillin; Z88.1 Allergy status to other antibiotic agents

== ENCOUNTER → 2020-12-08 | Outpatient (CLI) | payer OTHER, MEDICARE ==
[~2020-12-08] VITALS: Ht 160 cm; Wt 56.2 kg
[2020-12-08 12:37] VITALS: BP 132/62
--- NOTE | 2020-12-08 12:41 | NUR ---
Pain Clinic Assessment: 1. History of Osteoarthritis: OSTEOPOROSIS HANDS KNEES History of Rheumatoid Arthritis: NONE 2. Height: 5 ft. 3 in. 160.0 cm. Weight: 124.0 lb. oz. 56.246 kg. Patient's BMI: 22.0 3. Vital Signs: BP: 132/62 Pulse: 82 Resp: 16 Temp: 02 Sat: 96 ECG Mon: 4. Pain Intensity: 7 5. Fall Risk: Dizziness: N Needs help standing or walking: Y Fallen in the last 3 months: N Fall risk comments: 6. Patient on Blood Thinner: None 7. History of Hypertension: Y 8. Opioid Therapy greater than 6 weeks: Y Opiate Contract Signed: 09/14/15 9. Risk Assessment Tool Provided: low-1 10. Functional Assessment Tool: 11. Recreational Drug Use: Never Drug Type: Tobacco Use: Never Smoker Tobacco Type: Amount or Packs/day: How Many Years: Alcohol Use: No Frequency: Quant:
== END ==
LOC: PAIN 12:08
PROVIDERS: ATTEND Clinical Nurse Specialist Adult Health
DX: G89.29 Other chronic pain (principal); R10.9 Unspecified abdominal pain; M54.50 Low back pain, unspecified; Z79.899 Other long term (current) drug therapy; Z88.0 Allergy status to penicillin; Z88.8 Allergy status to other drugs, medicaments and biological substances

== ENCOUNTER → 2021-03-29 | Outpatient (CLI) | payer OTHER, MEDICARE ==
[~2021-03-29] VITALS: Ht 154.9 cm; Wt 46.3 kg
[~2021-03-29] MED LIST changes: +CALCIUM500 MG PO; +FOLIC ACID1 MG PO; +SLOW FE142 MG PO; +VITAMIN D3 PO
[2021-03-29 12:11] VITALS: BP 123/84
--- NOTE | 2021-03-29 12:12 | NUR ---
Pain Clinic Assessment: 1. History of Osteoarthritis: OSTEOPOROSIS HANDS KNEES History of Rheumatoid Arthritis: NONE 2. Height: 5 ft. 1 in. 154.9 cm. Weight: 102.0 lb. oz. 46.267 kg. Patient's BMI: 19.3 3. Vital Signs: BP: 123/84 Pulse: 109 Resp: 14 Temp: 02 Sat: 96 ECG Mon: 4. Pain Intensity: 7 5. Fall Risk: Dizziness: N Needs help standing or walking: Y Fallen in the last 3 months: N Fall risk comments: 6. Patient on Blood Thinner: None 7. History of Hypertension: Y 8. Opioid Therapy greater than 6 weeks: Y Opiate Contract Signed: 09/14/15 9. Risk Assessment Tool Provided: low-1 10. Functional Assessment Tool: 11. Recreational Drug Use: Never Drug Type: Tobacco Use: Never Smoker Tobacco Type: Amount or Packs/day: How Many Years: Alcohol Use: No Frequency: Quant:
== END ==
LOC: PAIN 09:23
PROVIDERS: ATTEND Clinical Nurse Specialist Adult Health
DX: G89.29 Other chronic pain (principal); R10.9 Unspecified abdominal pain; M54.50 Low back pain, unspecified; K90.9 Intestinal malabsorption, unspecified; M85.88 Other specified disorders of bone density and structure, other site; Z88.0 Allergy status to penicillin; Z88.8 Allergy status to other drugs, medicaments and biological substances; Z79.899 Other long term (current) drug therapy